=== PATIENT | female | born 1975 | race Caucasian/White ===

== ENCOUNTER → 2016-11-16 | Outpatient (CLI) | payer BC ==
[~2016-11-16] MED LIST: CALC-250 PO; FERR325T74 PO; Hydrocodone Bit/Acetaminophen PO; IBUP-1773 PO; Ibuprofen PO; MULT-974 PO; WEIGHT LOSS PO
--- NOTE | 2016-11-16 19:21 | Diagnostic Imaging Report ---
Bilateral screening mammogram. The current study was also evaluated with a Computer Aided Detection (CAD) system. INDICATION: Screening. No current complaints stated on the questionnaire. COMPARISON: None. FINDINGS: The breasts are composed of heterogeneously dense parenchyma which may decrease mammographic sensitivity. No mass, architectural distortion, or suspicious cluster of calcification seen. IMPRESSION: No mammographic evidence of malignancy. Annual screening mammogram is recommended. ACR BI-RADS Category 2: Benign findings. Result letter will be mailed to the patient. Note: At least 10% of breast cancer is not imaged by mammography. Dictated by: Dictated on workstation # [id number]
== END ==
LOC: RAD 09:35
PROVIDERS: ATTEND Family Medicine
DX: Z12.31 Encounter for screening mammogram for malignant neoplasm of breast (principal)
CPT/HCPCS: 77067

== ENCOUNTER → 2017-03-14 | Outpatient (CLI) | payer BC ==
[~2017-03-14] MED LIST changes: +PRED10TA22 PO
--- NOTE | 2017-03-14 13:21 | Diagnostic Imaging Report ---
EXAMINATION: PA and lateral views of the chest. INDICATION: Cough. FINDINGS: There are left lower lobe infiltrates. The right lung is clear. The heart size is normal. There is a small left pleural effusion. No right effusion and no pneumothorax. The mediastinum and jennifer appear unremarkable. IMPRESSION: Left lower lobe infiltrates and a small left effusion. Dictated by: Dictated on workstation # [id number]
== END ==
LOC: RAD 10:22
PROVIDERS: ATTEND Family Medicine
DX: R91.8 Other nonspecific abnormal finding of lung field (principal); J90 Pleural effusion, not elsewhere classified
CPT/HCPCS: 71020

== ENCOUNTER → 2017-04-05 | Outpatient (CLI) | payer BC ==
--- NOTE | 2017-04-05 10:43 | Diagnostic Imaging Report ---
PA and lateral views of the chest Indication: Chest pain Findings: The lungs are clear. The heart size is normal. There is no effusion or pneumothorax The mediastinum and jennifer appear unremarkable. Impression: Unremarkable study. Dictated by: Dictated on workstation # [id number]
== END ==
LOC: RAD 09:44
PROVIDERS: ATTEND Family Medicine
DX: R07.89 Other chest pain (principal)
CPT/HCPCS: 71020

== ENCOUNTER 2017-04-07 08:33 | Emergency (ER) | payer BC ==
[~2017-04-07] VITALS: Ht 165.1 cm; Wt 72.6 kg
[~2017-04-07 08:33] MED LIST changes: -PRED10TA22 PO
--- OUTSIDE RECORDS SUMMARY | 2017-04-07 08:40 | XMS REPORT | Continuity of Care Document ---
Author Author [facility] Organization [facility] Address Unknown Phone Unavailable Allergies Active Description Code Type Severity Reaction Onset Reported/Identified Relationship to Patient Clinical Status Yes No Known Drug Allergies [id number] Drug Allergy Unknown N/ A 07/18/2007 Medications Problems Date Dx Coded Attending Type Code Diagnosis Diagnosed By 12/31/2013 RIANNA JUAREZ, HANNAH Umaña Ot 512.89 OTHER PNEUMOTHORAX 05/12/2014 RAJAT SCHREIBER DO C Ot 218.0 SUBMUCOUS LEIOMYOMA 05/12/2014 ABDOUL MONK RAJAT C Ot 616.2 BARTHOLIN'S GLAND CYST 05/12/2014 SHEFALI SCHREIBER DOA C Ot 617.1 OVARIAN ENDOMETRIOSIS 05/12/2014 ABDOUL MONK RAJAT C Ot 617.3 PELV PERIT ENDOMETRIOSIS 06/08/2014 ABDOUL MONK RAJAT C Ot 793.5 06/08/2014 ABDOUL MONK RAJAT C Ot V72.63 06/08/2014 ABDOUL MONK RAJAT C Ot V74.8 06/10/2014 ABDOUL MONK RAJAT C Ot 218.2 SUBSEROUS LEIOMYOMA 06/10/2014 ABDOUL MONK RAJAT C Ot 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 06/10/2014 ABDOUL MONK RAJAT C Ot 620.2 OVARIAN CYST NEC/NOS 06/10/2014 ABDOUL MONK RAJAT C Ot 621.2 HYPERTROPHY OF UTERUS 06/16/2014 ABDOUL MONK RAJAT C Ot 218.0 06/16/2014 ABDOUL MONK RAJAT C Ot 617.9 06/16/2014 ABDOUL MONK RAJAT C Ot V72.63 06/16/2014 ABDOUL MONK RAJAT C Ot V74.8 06/02/2015 Ot 724.79 06/02/2015 RICKY JUAREZ, MABEL Snow Ot 786.2 06/02/2015 RICKY JUAREZ, MABEL Snow Ot 786.05 06/02/2015 RIANNA JUAREZ, HANNAH Umaña Ot 512.89 06/02/2015 RICKY JUAREZ, MABEL Snow Ot 620.2 06/02/2015 RICKY JUAREZ, MABEL Snow Ot 626.8 06/02/2015 SCHREIBER DO, RAJAT C Ot 793.5 06/02/2015 SCHREIBER DO, RAJAT C Ot V72.63 06/02/2015 SCHREIBER DO, RAJAT C Ot V74.8 06/02/2015 SCHREIBER DO, RAJAT C Ot 218.0 06/02/2015 SCHREIBER DO, RAJAT C Ot 617.9 06/02/2015 SCHREIBER DO, RAJAT C Ot V72.63 06/02/2015 SCHREIBER DO, RAJAT C Ot V74.8 06/17/2015 ANNAMARIE JUAREZ, ENRRIQUE Casillas Ot R06.02 11/09/2015 Ot 724.79 DISORDER OF COCCYX NEC 11/09/2015 MABEL GARCÍA MD Ot 786.2 COUGH 11/09/2015 MABEL GARCÍA MD Ot 786.05 SHORTNESS OF BREATH 11/09/2015 RIANNA JUAREZ, HANNAH Umaña Ot 512.89 OTHER PNEUMOTHORAX 11/09/2015 RICKY JUAREZ, MABEL Snow Ot 620.2 OVARIAN CYST NEC/NOS 11/09/2015 MABEL GARCÍA MD Ot 626.8 MENSTRUAL DISORDER NEC 11/09/2015 SCHREIBER DO, RAJAT C Ot 793.5 NOSP (ABN) FINDINGS ON RADIOLOGICAL OT 11/09/2015 SCHREIBER DO, RAJAT C Ot V72.63 PRE-PROCEDURAL LABORATORY EXAMINATION 11/09/2015 SCHREIBER DO, RAJAT C Ot V74.8 SCREEN-BACTERIAL DIS NEC 11/09/2015 SCHREIBER DO, RAJAT C Ot 218.0 SUBMUCOUS LEIOMYOMA 11/09/2015 SCHREIBER DO, RAJAT C Ot 617.9 ENDOMETRIOSIS NOS 11/09/2015 SCHREIBER DO, RAJAT C Ot V72.63 PRE-PROCEDURAL LABORATORY EXAMINATION 11/09/2015 SCHREIBER DO, RAJAT C Ot V74.8 SCREEN-BACTERIAL DIS NEC 11/09/2015 ANNAMARIE JUAREZ, ENRRIQUE Casillas Ot R06.02 SHORTNESS OF BREATH 02/29/2016 Ot 724.79 DISORDER OF COCCYX NEC 02/29/2016 MABEL GARCÍA MD Ot 786.2 COUGH 02/29/2016 MABEL GARCÍA MD Ot 786.05 SHORTNESS OF BREATH 02/29/2016 RIANNA JUAREZ, HANNAH Umaña Ot 512.89 OTHER PNEUMOTHORAX 02/29/2016 MABEL GARCÍA MD Ot 620.2 OVARIAN CYST NEC/NOS 02/29/2016 MABEL GARCÍA MD Ot 626.8 MENSTRUAL DISORDER NEC 02/29/2016 SCHREIBER DO, RAJAT C Ot 793.5 NOSP (ABN) FINDINGS ON RADIOLOGICAL OT 02/29/2016 SCHREIBER DO, RAJAT C Ot V72.63 PRE-PROCEDURAL LABORATORY EXAMINATION 02/29/2016 SCHREIBER DO, RAJAT C Ot V74.8 SCREEN-BACTERIAL DIS NEC 02/29/2016 SCHREIBER DO, RAJAT C Ot 218.0 SUBMUCOUS LEIOMYOMA 02/29/2016 SCHREIBER DO, RAJAT C Ot 617.9 ENDOMETRIOSIS NOS 02/29/2016 SCHREIBER DO, RAJAT C Ot V72.63 PRE-PROCEDURAL LABORATORY EXAMINATION 02/29/2016 SCHREIBER DO, RAJAT C Ot V74.8 SCREEN-BACTERIAL DIS NEC 02/29/2016 ANNAMARIE JUAREZ, ENRRIQUE Casillas Ot R06.02 SHORTNESS OF BREATH 06/13/2016 Ot 724.79 DISORDER OF COCCYX NEC 06/13/2016 MABEL GARCÍA MD Ot 786.2 COUGH 06/13/2016 MABEL GARCÍA MD Ot 786.05 SHORTNESS OF BREATH 06/13/2016 RIANNA JUAREZ, HANNAH M Ot 512.89 OTHER PNEUMOTHORAX 06/13/2016 MABEL GARCÍA MD Ot 620.2 OVARIAN CYST NEC/NOS 06/13/2016 MABEL GARCÍA MD Ot 626.8 MENSTRUAL DISORDER NEC 06/13/2016 SCHREIBER DO, RAJAT C Ot 793.5 NOSP (ABN) FINDINGS ON RADIOLOGICAL OT 06/13/2016 SCHREIBER DO, RAJAT C Ot V72.63 PRE-PROCEDURAL LABORATORY EXAMINATION 06/13/2016 SCHREIBER DO, RAJAT C Ot V74.8 SCREEN-BACTERIAL DIS NEC 06/13/2016 SCHREIBER DO, RAJAT C Ot 218.0 SUBMUCOUS LEIOMYOMA 06/13/2016 SCHREIBER DO, RAJAT C Ot 617.9 ENDOMETRIOSIS NOS 06/13/2016 SCHREIBER DO, RAJAT C Ot V72.63 PRE-PROCEDURAL LABORATORY EXAMINATION 06/13/2016 SCHREIBER DO, RAJAT C Ot V74.8 SCREEN-BACTERIAL DIS NEC 06/13/2016 ANNAMARIE JUAREZ, ENRRIQUE Casillas Ot R06.02 SHORTNESS OF BREATH 11/16/2016 MABEL GARCÍA MD Ot 786.2 COUGH 11/16/2016 MABEL GARCÍA MD Ot 786.05 SHORTNESS OF BREATH 11/16/2016 RIANNA JUAREZ, HANNAH M Ot 512.89 OTHER PNEUMOTHORAX 11/16/2016 MABEL GARCÍA MD Ot 620.2 OVARIAN CYST NEC/NOS 11/16/2016 MABEL GARCÍA MD Ot 626.8 MENSTRUAL DISORDER NEC 11/16/2016 SCHREIBER DO, RAJAT C Ot 793.5 NOSP (ABN) FINDINGS ON RADIOLOGICAL OT 11/16/2016 SCHREIBER DO, RAJAT C Ot V72.63 PRE-PROCEDURAL LABORATORY EXAMINATION 11/16/2016 SCHREIBER DO, RAJAT C Ot V74.8 SCREEN-BACTERIAL DIS NEC 11/16/2016 SCHREIBER DO, RAJAT C Ot 218.0 SUBMUCOUS LEIOMYOMA 11/16/2016 SCHREIBER DO, RAJAT C Ot 617.9 ENDOMETRIOSIS NOS 11/16/2016 SCHREIBER DO, RAJAT C Ot V72.63 PRE-PROCEDURAL LABORATORY EXAMINATION 11/16/2016 SCHREIBER DO, RAJAT C Ot V74.8 SCREEN-BACTERIAL DIS NEC 11/16/2016 ANNAMARIE JUAREZ, ENRRIQUE Casillas Ot R06.02 SHORTNESS OF BREATH 11/22/2016 MABEL GARCÍA MD Ot Z12.31 ENCNTR SCREEN MAMMOGRAM FOR MALIGNANT NE 11/29/2016 MABEL GARCÍA MD Ot Z12.31 ENCNTR SCREEN MAMMOGRAM FOR MALIGNANT NE 01/10/2017 MABEL GARCÍA MD Ot 786.2 COUGH 01/10/2017 MABEL GARCÍA MD Ot 786.05 SHORTNESS OF BREATH 01/10/2017 RIANNA JUAREZ, HANNAH M Ot 512.89 OTHER PNEUMOTHORAX 01/10/2017 MABEL GARCÍA MD Ot 620.2 OVARIAN CYST NEC/NOS 01/10/2017 MABEL GARCÍA MD Ot 626.8 MENSTRUAL DISORDER NEC 01/10/2017 SCHREIBER DO, RAJAT C Ot 793.5 NOSP (ABN) FINDINGS ON RADIOLOGICAL OT 01/10/2017 SCHREIBER DO, RAJAT C Ot V72.63 PRE-PROCEDURAL LABORATORY EXAMINATION 01/10/2017 SCHREIBER DO, RAJAT C Ot V74.8 SCREEN-BACTERIAL DIS NEC 01/10/2017 SCHREIBER DO, RAJAT C Ot 218.0 SUBMUCOUS LEIOMYOMA 01/10/2017 SCHREIBER DO, RAJAT C Ot 617.9 ENDOMETRIOSIS NOS 01/10/2017 SCHREIBER DO, RAJAT C Ot V72.63 PRE-PROCEDURAL LABORATORY EXAMINATION 01/10/2017 SCHREIBER DO, RAJAT C Ot V74.8 SCREEN-BACTERIAL DIS NEC 01/10/2017 ANNAMARIE JUAREZ, ENRRIQUE Casillas Ot R06.02 SHORTNESS OF BREATH 01/10/2017 MABEL GARCÍA MD Ot Z12.31 ENCNTR SCREEN MAMMOGRAM FOR MALIGNANT NE 03/14/2017 MABEL GARCÍA MD Ot 786.2 COUGH 03/14/2017 MABEL GARCÍA MD Ot 786.05 SHORTNESS OF BREATH 03/14/2017 RIANNA JUAREZ, HANNAH Umaña Ot 512.89 OTHER PNEUMOTHORAX 03/14/2017 MABEL GARCÍA MD Ot 620.2 OVARIAN CYST NEC/NOS 03/14/2017 MABEL GARCÍA MD Ot 626.8 MENSTRUAL DISORDER NEC 03/14/2017 SCHREIBER DO, RAJAT C Ot 793.5 NOSP (ABN) FINDINGS ON RADIOLOGICAL OT 03/14/2017 SCHREIBER DO, RAJAT C Ot V72.63 PRE-PROCEDURAL LABORATORY EXAMINATION 03/14/2017 SCHREIBER DO, RAJAT C Ot V74.8 SCREEN-BACTERIAL DIS NEC 03/14/2017 SCHREIBER DO, RAJAT C Ot 218.0 SUBMUCOUS LEIOMYOMA 03/14/2017 SCHREIBER DO, RAJAT C Ot 617.9 ENDOMETRIOSIS NOS 03/14/2017 SCHREIBER DO, RAJAT C Ot V72.63 PRE-PROCEDURAL LABORATORY EXAMINATION 03/14/2017 SCHREIBER DO, RAJAT C Ot V74.8 SCREEN-BACTERIAL DIS NEC 03/14/2017 ANNAMARIE JUAREZ, ENRRIQUE Casillas Ot R06.02 SHORTNESS OF BREATH 03/14/2017 MABEL GARCÍA MD Ot Z12.31 ENCNTR SCREEN MAMMOGRAM FOR MALIGNANT NE 03/15/2017 MABEL GARCÍA MD Ot J90 PLEURAL EFFUSION, NOT ELSEWHERE CLASSIFI 03/15/2017 MABEL GARCÍA MD Ot R91.8 OTHER NONSPECIFIC ABNORMAL FINDING OF IESHA 03/28/2017 MABEL GARCÍA MD Ot J90 PLEURAL EFFUSION, NOT ELSEWHERE CLASSIFI 03/28/2017 MABEL GARCÍA MD Ot R91.8 OTHER NONSPECIFIC ABNORMAL FINDING OF IESHA Procedures Results Encounters ACCT No. Visit Date/Time Discharge Status Pt. Type Provider Facility Loc./Unit Complaint [id number] 03/14/2017 10:22:00 2016 23:59:59 CLS Outpatient MABEL GARCÍA MD [facility] RAD COUGH [id number] 11/16/2016 09:35:00 2016 23:59:59 CLS Outpatient MABEL GARCÍA MD [facility] RAD SCREENING [id number] 06/02/2015 08:34:00 2014 23:59:59 CLS Outpatient ENRRIQUE DE LUNA MD [facility] RT SHORTNESS OF BREATH [id number] 06/09/2014 06:07:00 2013 11:30:00 DIS Outpatient RAJAT SCHREIBER DO [facility] UTERINE FIBROIDS;ENDOMETRIOSIS; SUBMUCOSA FIBROIDS [id number] 05/25/2014 09:22:00 2013 23:59:59 CLS Outpatient RAJAT SCHREIBER DO [facility] PREOP UTERINE FIBROIDS;ENDOMETRIOSIS; SUBMUCOSA FIBROIDS [id number] 05/12/2014 08:20:00 2013 16:20:00 DIS Outpatient RAJAT SCHREIBER DO [facility] THICKENED ENDOMETIUM; HYPERVASCULAR LESION [id number] 05/11/2014 08:32:00 2013 23:59:59 CLS Outpatient RAJAT SCHREIBER DO [facility] PREOP THICKENED ENDOMETRIUM; HYPERVASCULAR LESION [id number] 04/02/2014 09:45:00 2013 23:59:59 CLS Outpatient MABEL GARCÍA MD [facility] RAD DUB [id number] 01/08/2014 09:16:00 2013 23:59:59 CLS Outpatient BLANCAHANNAH CHUNG MD [facility] RAD RT PNUEMOTHORAX [id number] 12/29/2013 22:10:00 2013 14:46:00 DIS Inpatient HANNAH BLANCA MD [facility] SURGICAL SPONTANEOUS PNEUMOTHORAX [id number] 07/09/2013 11:46:00 2013 23:59:59 CLS Outpatient MABEL GARCÍA MD [facility] RT COUGH [id number] 06/27/2013 13:53:00 2012 23:59:59 CLS Outpatient MABEL GARCÍA MD [facility] RAD COUGH [id number] 05/11/2011 09:05:00 Document Registration
--- NOTE | 2017-04-07 09:18 | Diagnostic Imaging Report ---
EXAMINATION: CHEST (PA AND LATERAL) CLINICAL INDICATION: 41-year-old female, left-sided chest pain. COMPARISON: April 05, 2017. FINDINGS: Stable overall appearance of the cardiomediastinal silhouette. There is no identified pneumothorax. There is no pleural effusion. There is no identified focal airspace consolidation. There is no identified significantly displaced rib fracture. IMPRESSION: No identified acute cardiopulmonary abnormality. Dictated by: Dictated on workstation # [id number]
--- NOTE | 2017-04-07 09:37 | ED Chest Pain ---
General Chief Complaint: Chest Wall/Rib Pain Stated Complaint: CP Nursing Triage Note: PT REPORTS CHEST WALL PAIN SINCE SUNDAY THAT IS WORSE WITH INSPIRATION. SHE REPORTS SHE WAS RECENTLY TX FOR PNEUMONIA. SHE ALSO STATES SHE SAW HER PCP ON SUNDAY AND HAD CXR DONE. SHE REPORTS NO IMPROVEMENT OF CHEST WALL PAIN. Nursing Sepsis Screen: No Definite Risk Source: patient, old records Exam Limitations: no limitations Allergies and Home Medications Allergies Coded Allergies: No Known Drug Allergies (Verified , 07/18/07) Home Medications Calcium Carbonate/Vitamin D3 1 Each Tablet, 1 EACH PO DAILY, (Reported) Ferrous Sulfate 325 Mg Tablet, 325 MG PO BID, (Reported) Multivitamin 1 Each Tablet, 1 EACH PO DAILY, (Reported) Prednisone 10 Mg Tab.ds.pk, 10 MG PO UD, #18 3 daily for 3 days, then 2 daily for 3 days, then one daily for 3 days Prescribed by: ROGE PAPPAS on 04/07/17 0944 [Hydrocodone Bit/Acetaminophen] 1 TAB TAB, 1-2 TAB PO Q4H PRN for Pain, #45 Prescribed by: RAJAT SCHREIBER on 06/10/14 0907 [Ibuprofen] 600 MG TAB, 600 MG PO Q6H PRN for PAIN, #40 Prescribed by: RAJAT SCHREIBER on 06/10/14 0907 Past Mwzbkxn-Ktidxy-Mepkrk Hx Patient Social History Alcohol Use: Denies Use Recreational Drug Use: No Smoking Status: Never a Smoker 2nd Hand Smoke Exposure: No Recent Foreign Travel: No Contact w/Someone Who Travel: No Recent Infectious Disease Expo: No Recent Hopitalizations: No Physical Abuse: No Sexual Abuse: No Seasonal Allergies Seasonal Allergies: No Surgeries History of Surgeries: Yes (D&C, DIAGNOSTIC LAPAROSCOPY, PLEURADESIS) Respiratory History of Respiratory Disorde: Yes (November,-SPONTANEOUS PNEUMOTHORAX) Cardiovascular History of Cardiac Disorders: No Neurological History of Neurological Disord: No Reproductive System Hx Reproductive Disorders: Yes Sexually Transmitted Disease: No Gastrointestinal History of Gastrointestinal Di: No Musculoskeletal History of Musculoskeletal Dis: Yes (TEAR SHOULDER AND ARTHRITIS IN HAND) Endocrine History of Endocrine Disorders: No Cancer History of Cancer: No Psychosocial History of Psychiatric Problem: No Suicide Risk Score: 0 Integumentary History of Skin or Integumenta: No Blood Transfusions History of Blood Disorders: Yes Physical Exam Vital Signs Vital Sign - Last 12Hours 04/07/17 08:46 Temp 98.1 Pulse 76 Resp 20 B/P (MAP) 108/71 Pulse Ox 100 O2 Delivery Room Air Capillary Refill : Less Than 3 Seconds Progress/Results/Core Measures Results/Orders My Orders Orders - ROGE LOUIE MD Chest Pa/Lat (2 View) (04/07/17 08:55) Vital Signs/I&O Vital Sign - Last 12Hours 04/07/17 08:46 Temp 98.1 Pulse 76 Resp 20 B/P (MAP) 108/71 Pulse Ox 100 O2 Delivery Room Air Blood Pressure Mean: 83 Diagnostic Imaging Diagonstic Imaging: Xray Plain Films/CT/US/NM/MRI: chest Comments Two-view chest x-ray viewed by me and report reviewed. See report below: NAME: RAJAT GARZA [facility] REC#: [id number] PT STATUS: REG ER : 1975 PHYSICIAN: ROGE LOUIE MD ADMIT DATE: 04/07/17/ER Draft Date of Exam:04/07/17 CHEST PA/LAT (2 VIEW) EXAMINATION: CHEST (PA AND LATERAL) CLINICAL INDICATION: 41-year-old female, left-sided chest pain. COMPARISON: April 05, 2017. FINDINGS: Stable overall appearance of the cardiomediastinal silhouette. There is no identified pneumothorax. There is no pleural effusion. There is no identified focal airspace consolidation. There is no identified significantly displaced rib fracture. IMPRESSION: No identified acute cardiopulmonary abnormality. Dictated on workstation # [id number] Dict: 04/07/17911 Trans: 04/07/17 0917 [facility] [id number] Interpreted by: KING CARBALLO MD Departure Impression Impression: Primary Impression: Chest wall pain Additional Impression: Cough Disposition: 01 HOME, SELF-CARE Condition: Improved Departure-Patient Inst. Decision time for Depature: 09:39 Referrals: MABEL GARCÍA MD (PCP/Family) Primary Care Physician Patient Instructions: Chest Pain That Is Not Caused by the Heart (DC) Add. Discharge Instructions: You may continue using your inhaler for shortness of breath, wheezing, or uncontrolled cough. Use your steroid (prednisone) taper as prescribed. Take with food or milk to avoid stomach irritation and take early in the day to avoid sleep disturbance. You may continue taking ibuprofen up to 600 mg every 6 hours as needed for pain. Add Tylenol (acetaminophen) up to 1000 mg every 6 hours as needed for additional pain relief. If symptoms worsen, return to the emergency room, especially if you develop fever greater than 100. If you are not significantly improving by 48 hours after starting this treatment , please contact your doctor. Exercise deep breathing frequently throughout the day, preferably 10 times per hour while awake if you can until pain resolves. This will help prevent recurrence of pneumonia. All discharge instructions reviewed with patient and/or family. Voiced understanding. Scripts Prednisone (Prednisone) 10 Mg Tab.ds.pk 10 MG PO UD, #18 PKG 3 daily for 3 days, then 2 daily for 3 days, then one daily for 3 days Prov: ROGE LOUIE MD 04/07/17 ROGE LOUIE MD Apr 07, 2017 09:37
[2017-04-07] MEDS ORDERED: PRED10TA22 PO (09:44)
[2017-04-07 09:50] VITALS: BP 108/71
== END 2017-04-07 09:50 | disposition home or self-care (01) ==
LOC: EDUNIT# 08:33 → ER 08:35
DX: R07.89 Other chest pain (principal); R05 Cough
CPT/HCPCS: 71020; 99283

== ENCOUNTER → 2017-04-25 | Outpatient (CLI) | payer BC ==
[~2017-04-25] MED LIST changes: +PRED10TA22 PO; +RT-ALBUTEROL SULF 2.5 MG/3 ML PRE-MIX VIAL IH ONE; +RT-ALBUTEROL SULF 2.5 MG/3 ML PRE-MIX VIAL ONE
== END ==
LOC: RT 15:36
PROVIDERS: ATTEND Allergy & Immunology
DX: R06.02 Shortness of breath (principal)
CPT/HCPCS: 94060; 94640; 94726; 94729

== ENCOUNTER → 2018-07-09 | Outpatient (CLI) | payer BC ==
[~2018-07-09] MED LIST changes: -RT-ALBUTEROL SULF 2.5 MG/3 ML PRE-MIX VIAL IH ONE; -RT-ALBUTEROL SULF 2.5 MG/3 ML PRE-MIX VIAL ONE
--- NOTE | 2018-07-09 13:10 | Diagnostic Imaging Report ---
INDICATION: Routine screening. Comparison is made with prior mammogram from 11/16/2016. 2-D and 3-D bilateral screening mammography was performed with computer-aided Detection (CAD) system. FINDINGS: Both breasts remain heterogeneously dense, limiting the sensitivity of mammography. No dominant mass or malignant-appearing microcalcifications are seen. The axillae are unremarkable. IMPRESSION: No mammographic features suspicious for malignancy are identified. ACR BI-RADS Category 1: Negative. Result letter will be mailed to the patient. Note: At least 10% of breast cancer is not imaged by mammography. Dictated by: Dictated on workstation # [id number]
== END ==
LOC: RAD 09:31
PROVIDERS: ATTEND Obstetrics & Gynecology
DX: Z12.31 Encounter for screening mammogram for malignant neoplasm of breast (principal)
CPT/HCPCS: 77067

== ENCOUNTER → 2018-12-09 | Outpatient (CLI) | payer BC ==
[~2018-12-09] VITALS: Ht 165.1 cm; Wt 73.9 kg
[~2018-12-09] MED LIST changes: +GADOBUTROL 7.5 MMOL/7.5 ML (GADAVIST) VIAL IV ONE; +IOHEXOL 240 MGI/ML 20 ML (OMNIPAQUE) VIAL IV ONE; +LIDOCAINE 1% INJ 20 ML 20 ML VIAL INJ ONE; +LIDOCAINE 1% INJ 20 ML 20 ML VIAL ONE
--- NOTE | 2018-12-09 10:50 | Diagnostic Imaging Report ---
EXAMINATION: Magnetic resonance imaging of the right shoulder with intra-articular contrast. DATE: December 09, 2018. COMPARISON: Right shoulder arthrogram December 09, 2018. HISTORY: 43-year-old female, right shoulder pain and decreased range of motion. TECHNIQUE: Magnetic Resonance Imaging sequences were performed of the shoulder following the intra-articular administration of contrast. FINDINGS: ROTATOR CUFF, LIGAMENTS, TENDONS, AND MUSCLES: The supraspinatus, infraspinatus, teres minor, and subscapularis tendons and muscles are intact. There is normal rotator cuff muscle bulk and signal. LONG HEAD OF BICEPS: The biceps labral attachment and long head of the biceps tendon is intact. The long head of the biceps tendon is normally positioned within the bicipital groove. GLENOHUMERAL JOINT: The humeral head is well positioned relative to the glenoid. The labrum is intact. There is no identified paralabral cyst. The articular cartilage is grossly intact. There is no intra-articular body or prominent synovitis. ACROMIOCLAVICULAR JOINT: The acromioclavicular joint is normally aligned. The coracoclavicular and coracoacromial ligaments are intact. There are no degenerative changes of the acromioclavicular joint. BONE: The bones all have normal configuration. There is a low signal lesion in the distal clavicle most likely reflecting a benign bone island. There is no acute fracture, bone contusion, or evidence of osteonecrosis. BURSAE AND SOFT TISSUES: The bursae and soft tissue surrounding the shoulder are unremarkable. IMPRESSION: 1. Intact labrum and unremarkable additional glenohumeral joint assessment. 2. Intact rotator cuff. 3. Intact acromioclavicular joint. 4. No acute fracture, bone contusion, or evidence of osteonecrosis. 5. Low signal lesion of the distal clavicle most likely reflecting a benign bone island. Dictated by: Dictated on workstation # [id number]
--- NOTE | 2018-12-09 11:36 | Diagnostic Imaging Report ---
Right shoulder arthrogram for MRI. Indication: Arm pain Following the typical preparation of the skin and administration of local anesthesia, a 21-gauge needle was advanced into the glenohumeral joint using fluoroscopic guidance. A 15 cc mixture of 10 cc of Omnipaque 240, 10 cc of saline and 0.2 cc of Gadavist this was infused. The patient tolerated the procedure well and was dismissed in good condition. 24 seconds of fluoroscopy time was utilized. Impression: There has been a successful injection of the glenohumeral joint on the right. MRI is pending for further study. Dictated by: Dictated on workstation # [id number]
== END ==
LOC: RAD 08:34
PROVIDERS: ATTEND Orthopaedic Surgery
DX: M89.9 Disorder of bone, unspecified (principal); M25.511 Pain in right shoulder
CPT/HCPCS: 23350; 73040; 73219

== ENCOUNTER → 2019-08-19 | Outpatient (CLI) | payer BC ==
[~2019-08-19] MED LIST changes: -GADOBUTROL 7.5 MMOL/7.5 ML (GADAVIST) VIAL IV ONE; -IOHEXOL 240 MGI/ML 20 ML (OMNIPAQUE) VIAL IV ONE; -LIDOCAINE 1% INJ 20 ML 20 ML VIAL INJ ONE; -LIDOCAINE 1% INJ 20 ML 20 ML VIAL ONE
[2019-08-19 10:56] LABS: BASOPHILS % (AUTO) 0 % (0-10); EOSINOPHILS # (AUTO) 0.1 10^3/uL (0.0-0.3); EOSINOPHILS % (AUTO) 2 % (0-10); HEMATOCRIT 38 % (35-52); HEMOGLOBIN 12.9 G/DL (11.5-16.0); LYMPHOCYTES # (AUTO) 1.6 X 10^3 (1.0-4.0); LYMPHOCYTES % (AUTO) 43 % (12-44); MEAN CORPUSCULAR HEMOGLOBIN 30 PG (25-34); MEAN CORPUSCULAR HGB CONC 34 G/DL (32-36); MEAN CORPUSCULAR VOLUME 87 FL (80-99); MEAN PLATELET VOLUME 9.3 FL (7.4-10.4); MONOCYTES # (AUTO) 0.4 X 10^3 (0.0-1.0); MONOCYTES % (AUTO) 11 % (0-12); NEUTROPHILS # (AUTO) 1.7 X 10^3 (1.8-7.8); NEUTROPHILS % (AUTO) 45 % (42-75); PLATELET COUNT 171 10^3/uL (130-400); RED CELL DISTRIBUTION WIDTH 12.1 % (10.0-14.5); WHITE BLOOD COUNT 3.8 10^3/uL (4.3-11.0)
--- NOTE | 2019-08-19 11:30 | Diagnostic Imaging Report ---
INDICATION: Cough and shortness of breath. PA and lateral views were obtained. COMPARISON: Comparison made with prior examination from 04/07/2017. FINDINGS: The heart size, mediastinal configuration, and pulmonary vascularity are within normal limits. There is no pleural effusion, pneumothorax, or pneumonia. The osseous structures are unremarkable. IMPRESSION: No acute cardiopulmonary abnormality. Dictated by: Dictated on workstation # [id number]
== END ==
LOC: RAD 10:34
PROVIDERS: ATTEND Family Medicine
DX: R06.02 Shortness of breath (principal); R05 Cough
CPT/HCPCS: 36415; 71046; 85025

== ENCOUNTER 2020-01-07 08:29 | Emergency (ER) | payer BC ==
[~2020-01-07] VITALS: Ht 165 cm; Wt 73.6 kg
[2020-01-07] MEDS ORDERED: ASPIRIN 81 MG CHEW (CHILDREN'S ASA) PO ONE (08:45)
--- NOTE | 2020-01-07 08:54 | Diagnostic Imaging Report ---
INDICATION: Shortness fair, chest pain, fever.. TECHNIQUE: Single view chest 8:50 AM. CORRELATION STUDY: 08/19/2019 FINDINGS: The heart size, mediastinal configuration and pulmonary vascularity are within normal limits. The lungs are clear with no consolidating infiltrate. There is no significant effusion or pneumothorax. Mild rightward curvature thoracic spine. IMPRESSION: 1. Generally stable, negative appearing portable chest. Dictated by: Dictated on workstation # [id number]
--- OUTSIDE RECORDS SUMMARY | 2020-01-07 08:54 | XMS REPORT | Clinical Summary ---
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 If you d o not see the information that you expected, contact Release of Information in [facility] [employer] Information Management department at [phone] for further assistan ce in locating additional records.[facility] Allergies Not on File Medications Not on file Active Problems Not on file Family History Medical History Relation Name Comments COPD Father COPD Mother Relation Name Status Comments Father Mother Social History Date Tobacco Use Types Packs/Day Years Used Never Smoker Smokeless Tobacco: Never Used Drinks/Week oz/Week Comments Alcohol Use Yes Alcohol Habits Answer Date Recorded How often do you have a drink containing alcohol? Monthly or less 07/10/2019 How many drinks containing alcohol do you have on No t asked a typical day when you are drinking? How often do you have six or more drinks on one Not asked occasion? Sex Assigned at Date Recorded Not on file Industry Job Start Date Occupation Not on file Not on file Not on file Travel End Travel History Travel Start No recent travel history available. Last Filed Vital Signs Reading Time Taken Comments Vital Sign 98/54 07/10/2019 11:18 AM PRE PRESS OPERATOR Blood Pressure 76 07/10/2019 11:18 AM PRE PRESS OPERATOR Pulse 36.8 C (98.3 F) 07/10/2019 11:18 AM PRE PRESS OPERATOR Temperature 14 07/10/2019 11:18 AM PRE PRESS OPERATOR Respiratory Rate 100% 07/10/2019 11:18 AM PRE PRESS OPERATOR Oxygen Saturation - - Inhaled Oxygen Concentration - - Weight - - Height - - Body Mass Index Plan of Treatment Health Maintenance Due Date Last Done Comments HIV SCREENING 1991 DTAP/TDAP VACCINES (1 - 1994 Tdap) HEPATITIS C SCREENING 1994 PHYSICAL (COMPREHENSIVE) 1994 EXAM CERVICAL CANCER SCREENING 1997 BREAST CANCER SCREENING 2016 INFLUENZA VACCINE 04/01/2020 Results Not on filefrom Last 3 Months Insurance Type Payer Benefit Subscriber ID Effective Phone Address Plan / Dates Group PPO BCBS [facility] xxxxxxxxxxxx [id number] [facility] resent [id number] Advance Directives 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
--- OUTSIDE RECORDS SUMMARY | 2020-01-07 08:55 | XMS REPORT | Continuity of Care Document ---
Author Organization Unknown Address Unknown Phone Unavailable Allergies Active Description Code Type Severity Reaction Onset Reported/Identified Relationship to Patient Clinical Status Yes No Known Drug Allergies [id number] Drug Allergy Unknown N/A 07/18/2007 Medications There is no data. 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 2 06/02/2015 RICKY JUAREZ, MABEL Snow Ot 786. 05 06/02/2015 RIANNA JUAREZ, HANNAH Umaña Ot 512.89 06/02/2015 RICKY JUAREZ, MABEL Snow Ot 620. 2 06/02/2015 MABEL GARCÍA MD Ot 626. 8 06/02/2015 SCHREIBER DO, RAJAT C Ot 793.5 06/02/2015 SCHREIBER DO, RAJAT C Ot V72.6 3 06/02/2015 SCHREIBER DO, RAJAT C Ot V74.8 06/02/2015 SCHREIBER DO, RAJAT C Ot 218.0 06/02/2015 SCHREIBER DO, RAJAT C Ot 617.9 06/02/2015 SCHREIBER DO, RAJAT C Ot V72.6 3 06/02/2015 SCHREIBER DO, RAJAT C Ot V74.8 06/17/2015 ANNAMARIE JUAREZ, ENRRIQUE Casillas Ot R06.02 11/09/2015 Ot 724.79 DIS ORDER OF COCCYX NEC 11/09/2015 MABEL GARCÍA MD Ot 786. 2 COUGH 11/09/2015 MABEL GARCÍA MD Ot 786. 05 SHORTNESS OF BREATH 11/09/2015 RIANNA JUAREZ, HANNAH Umaña Ot 512.89 OTHER PNEUMOTHORAX 11/09/2015 MABEL GARCÍA MD Ot 620. 2 OVARIAN CYST NEC/NOS 11/09/2015 MABEL GARCÍA MD Ot 626. 8 MENSTRUAL DISORDER NEC 11/09/2015 SCHREIBER DO, RAJAT C Ot 793.5 NOSP (ABN) FINDINGS ON RADIOLOGICAL OT 11/09/2015 SCHREIBER DO, RAJAT C Ot V72.6 3 PRE-PROCEDURAL LABORATORY EXAMINATION 11/09/2015 SCHREIBER DO, RAJAT C Ot V74.8 SCREEN-BACTERIAL DIS NEC 11/09/2015 SCHREIBER DO, RAAJT C Ot 218.0 SUBMUCOUS LEIOMYOMA 11/09/2015 SCHREIBER DO, RAJAT C Ot 617.9 ENDOMETRIOSIS NOS 11/09/2015 SCHREIBER DO, RAJAT C Ot V72.6 3 PRE-PROCEDURAL LABORATORY EXAMINATION 11/09/2015 SCHREIBER DO, RAJAT C Ot V74.8 SCREEN-BACTERIAL DIS NEC 11/09/2015 ANNAMARIE JUAREZ, ENRRIQUE Casillas Ot R06.02 SHORTNESS OF BREATH 02/29/2016 Ot 724.79 DIS ORDER OF COCCYX NEC 02/29/2016 MABEL GARCÍA MD Ot 786. 2 COUGH 02/29/2016 MABEL GARCÍA MD Ot 786. 05 SHORTNESS OF BREATH 02/29/2016 RIANNA JUAREZ, HANNAH M Ot 512.89 OTHER PNEUMOTHORAX 02/29/2016 MABEL GARCÍA MD Ot 620. 2 OVARIAN CYST NEC/NOS 02/29/2016 MABEL GARCÍA MD Ot 626. 8 MENSTRUAL DISORDER NEC 02/29/2016 SCHREIBER DO, RAJAT C Ot 793.5 NOSP (ABN) FINDINGS ON RADIOLOGICAL OT 02/29/2016 SCHREIBER DO, RAJAT C Ot V72.6 3 PRE-PROCEDURAL LABORATORY EXAMINATION 02/29/2016 SCHREIBER DO, RAJAT C Ot V74.8 SCREEN-BACTERIAL DIS NEC 02/29/2016 SCHREIBER DO, RAJAT C Ot 218.0 SUBMUCOUS LEIOMYOMA 02/29/2016 SCHREIBER DO, RAJAT C Ot 617.9 ENDOMETRIOSIS NOS 02/29/2016 SCHREIBER DO, RAJAT C Ot V72.6 3 PRE-PROCEDURAL LABORATORY EXAMINATION 02/29/2016 SCHREIBER DO, RAJAT C Ot V74.8 SCREEN-BACTERIAL DIS NEC 02/29/2016 ANNAMARIE JUAREZ, ENRRIQUE Casillas Ot R06.02 SHORTNESS OF BREATH 06/13/2016 Ot 724.79 DIS ORDER OF COCCYX NEC 06/13/2016 MABEL GARCÍA MD Ot 786. 2 COUGH 06/13/2016 MABEL GARCÍA MD Ot 786. 05 SHORTNESS OF BREATH 06/13/2016 RIANNA JUAREZ, HANNAH M Ot 512.89 OTHER PNEUMOTHORAX 06/13/2016 MABEL GARCÍA MD Ot 620. 2 OVARIAN CYST NEC/NOS 06/13/2016 MABEL GARCÍA MD Ot 626. 8 MENSTRUAL DISORDER NEC 06/13/2016 SCHREIBER DO, RAJAT C Ot 793.5 NOSP (ABN) FINDINGS ON RADIOLOGICAL OT 06/13/2016 SCHREIBER DO, RAJAT C Ot V72.6 3 PRE-PROCEDURAL LABORATORY EXAMINATION 06/13/2016 SCHREIBER DO, RAJAT C Ot V74.8 SCREEN-BACTERIAL DIS NEC 06/13/2016 SCHREIBER DO, RAJAT C Ot 218.0 SUBMUCOUS LEIOMYOMA 06/13/2016 SCHREIBER DO, RAJAT C Ot 617.9 ENDOMETRIOSIS NOS 06/13/2016 SCHREIBER DO, RAJAT C Ot V72.6 3 PRE-PROCEDURAL LABORATORY EXAMINATION 06/13/2016 SCHREIBER DO, RAJAT C Ot V74.8 SCREEN-BACTERIAL DIS NEC 06/13/2016 ANNAMARIE JUAREZ, ENRRIQUE Casillas Ot R06.02 SHORTNESS OF BREATH 11/16/2016 MABEL GARCÍA MD Ot 786. 2 COUGH 11/16/2016 MABEL GARCÍA MD Ot 786. 05 SHORTNESS OF BREATH 11/16/2016 RIANNA JUAREZ, HANNAH M Ot 512.89 OTHER PNEUMOTHORAX 11/16/2016 MABEL GARCÍA MD Ot 620. 2 OVARIAN CYST NEC/NOS 11/16/2016 MABEL GARCÍA MD Ot 626. 8 MENSTRUAL DISORDER NEC 11/16/2016 SCHREIBER DO, RAJAT C Ot 793.5 NOSP (ABN) FINDINGS ON RADIOLOGICAL OT 11/16/2016 SCHREIBER DO, RAJAT C Ot V72.6 3 PRE-PROCEDURAL LABORATORY EXAMINATION 11/16/2016 SCHREIBER DO, RAJAT C Ot V74.8 SCREEN-BACTERIAL DIS NEC 11/16/2016 SCHREIBER DO, RAJAT C Ot 218.0 SUBMUCOUS LEIOMYOMA 11/16/2016 SCHREIBER DO, RAJAT C Ot 617.9 ENDOMETRIOSIS NOS 11/16/2016 SCHREIBER DO, RAJAT C Ot V72.6 3 PRE-PROCEDURAL LABORATORY EXAMINATION 11/16/2016 SCHREIBER DO, RAJAT C Ot V74.8 SCREEN-BACTERIAL DIS NEC 11/16/2016 ANNAMARIE JUAREZ, ENRRIQUE Casillas Ot R06.02 SHORTNESS OF BREATH 11/22/2016 MABEL GARCÍA MD Ot Z12. 31 ENCNTR SCREEN MAMMOGRAM FOR MALIGNANT NE 11/29/2016 MABEL GARCÍA MD Ot Z12. 31 ENCNTR SCREEN MAMMOGRAM FOR MALIGNANT NE 01/10/2017 MABEL GARCÍA MD Ot 786. 2 COUGH 01/10/2017 MABEL GARCÍA MD Ot 786. 05 SHORTNESS OF BREATH 01/10/2017 RIANNA JUAREZ, HANNAH M Ot 512.89 OTHER PNEUMOTHORAX 01/10/2017 MABEL GARCÍA MD Ot 620. 2 OVARIAN CYST NEC/NOS 01/10/2017 MABEL GARCÍA MD Ot 626. 8 MENSTRUAL DISORDER NEC 01/10/2017 SCHREIBER DO, RAJAT C Ot 793.5 NOSP (ABN) FINDINGS ON RADIOLOGICAL OT 01/10/2017 SCHREIBER DO, RAJAT C Ot V72.6 3 PRE-PROCEDURAL LABORATORY EXAMINATION 01/10/2017 SCHREIBER DO, RAJAT C Ot V74.8 SCREEN-BACTERIAL DIS NEC 01/10/2017 SCHREIBER DO, RAJAT C Ot 218.0 SUBMUCOUS LEIOMYOMA 01/10/2017 SCHREIBER DO, RAJAT C Ot 617.9 ENDOMETRIOSIS NOS 01/10/2017 SCHREIBER DO, RAJAT C Ot V72.6 3 PRE-PROCEDURAL LABORATORY EXAMINATION 01/10/2017 SCHREIBER DO, RAJAT C Ot V74.8 SCREEN-BACTERIAL DIS NEC 01/10/2017 ANNAMARIE JUAREZ, ENRRIQUE Casillas Ot R06.02 SHORTNESS OF BREATH 01/10/2017 MABEL GARCÍA MD Ot Z12. 31 ENCNTR SCREEN MAMMOGRAM FOR MALIGNANT NE 03/14/2017 MABEL GARCÍA MD Ot 786. 2 COUGH 03/14/2017 RICKY JUAREZ, MABEL Snow Ot 786. 05 SHORTNESS OF BREATH 03/14/2017 RIANNA JUAREZ, HANNAH M Ot 512.89 OTHER PNEUMOTHORAX 03/14/2017 RICKY JUAREZ, MABEL Snow Ot 620. 2 OVARIAN CYST NEC/NOS 03/14/2017 RICKY JUAREZ, MABEL Snow Ot 626. 8 MENSTRUAL DISORDER NEC 03/14/2017 SCHREIBER DO, RAJAT C Ot 793.5 NOSP (ABN) FINDINGS ON RADIOLOGICAL OT 03/14/2017 SCHREIBER DO, RAJAT C Ot V72.6 3 PRE-PROCEDURAL LABORATORY EXAMINATION 03/14/2017 SCHREIBER DO, RAJAT C Ot V74.8 SCREEN-BACTERIAL DIS NEC 03/14/2017 SCHREIBER DO, RAJAT C Ot 218.0 SUBMUCOUS LEIOMYOMA 03/14/2017 SCHREIBER DO, RAJAT C Ot 617.9 ENDOMETRIOSIS NOS 03/14/2017 SCHREIBER DO, RAJAT C Ot V72.6 3 PRE-PROCEDURAL LABORATORY EXAMINATION 03/14/2017 SCHREIBER DO, RAJAT C Ot V74.8 SCREEN-BACTERIAL DIS NEC 03/14/2017 ANNAMARIE JUAREZ, ENRRIQUE Casillas Ot R06.02 SHORTNESS OF BREATH 03/14/2017 MABEL GARCÍA MD Ot Z12. 31 ENCNTR SCREEN MAMMOGRAM FOR MALIGNANT NE 03/15/2017 MABEL GARCÍA MD, Ot J90 PLEURAL EFFUSION, NOT ELSEWHERE CLASSIFI 03/15/2017 MABEL GARCÍA MD Ot R91. 8 OTHER NONSPECIFIC ABNORMAL FINDING OF IESHA 03/28/2017 MABEL GARCÍA MD, Ot J90 PLEURAL EFFUSION, NOT ELSEWHERE CLASSIFI 03/28/2017 MABEL GARCÍA MD Ot R91. 8 OTHER NONSPECIFIC ABNORMAL FINDING OF IESHA 04/07/2017 JACY JUAREZ, ROGE Banegas Ot R05 COUGH 04/07/2017 JACY JUAREZ, ROGE Banegas Ot R07.89 OTHER CHEST PAIN 04/18/2017 MABEL GARCÍA MD Ot R07. 89 OTHER CHEST PAIN 05/03/2017 ANNAMARIE JUAREZ, ENRRIQUE Casillas Ot R06.02 SHORTNESS OF BREATH 07/01/2018 MABEL GARCÍA MD Ot 786. 2 COUGH 07/01/2018 MABEL GARCÍA MD Ot 786. 05 SHORTNESS OF BREATH 07/01/2018 RIANNA JUAREZ, HANNAH Umaña Ot 512.89 OTHER PNEUMOTHORAX 07/01/2018 MABEL GARCÍA MD Ot 620. 2 OVARIAN CYST NEC/NOS 07/01/2018 MABEL GARCÍA MD Ot 626. 8 MENSTRUAL DISORDER NEC 07/01/2018 SCHREIBER DO, RAJAT C Ot 793.5 NOSP (ABN) FINDINGS ON RADIOLOGICAL OT 07/01/2018 SCHREIBER DO, RAJAT C Ot V72.6 3 PRE-PROCEDURAL LABORATORY EXAMINATION 07/01/2018 SCHREIBER DO, RAJAT C Ot V74.8 SCREEN-BACTERIAL DIS NEC 07/01/2018 SCHREIBER DO, RAJAT C Ot 218.0 SUBMUCOUS LEIOMYOMA 07/01/2018 SCHREIBER DO, RAJAT C Ot 617.9 ENDOMETRIOSIS NOS 07/01/2018 SCHREIBER DO, RAJAT C Ot V72.6 3 PRE-PROCEDURAL LABORATORY EXAMINATION 07/01/2018 SCHREIBER DO, RAJAT C Ot V74.8 SCREEN-BACTERIAL DIS NEC 07/01/2018 ANNAMARIE JUAREZ, ENRRIQUE Casillas Ot R06.02 SHORTNESS OF BREATH 07/01/2018 MABEL GARCÍA MD Ot Z12. 31 ENCNTR SCREEN MAMMOGRAM FOR MALIGNANT NE 07/01/2018 MABEL GARCÍA MD, Ot J90 PLEURAL EFFUSION, NOT ELSEWHERE CLASSIFI 07/01/2018 MABEL GARCÍA MD Ot R91. 8 OTHER NONSPECIFIC ABNORMAL FINDING OF IESHA 07/01/2018 MABEL GARCÍA MD Ot R07. 89 OTHER CHEST PAIN 07/01/2018 ANNAMARIE JUAREZ, ENRRIQUE Casillas Ot R06.02 SHORTNESS OF BREATH 07/10/2018 ABDOUL MONK RAJAT C Ot Z12.3 1 ENCNTR SCREEN MAMMOGRAM FOR MALIGNANT NE 07/24/2018 ABDOUL MONK RAJAT C Ot Z12.3 1 ENCNTR SCREEN MAMMOGRAM FOR MALIGNANT NE 12/17/2018 ENRRIQUE CAIN MD Ot M25.511 PAIN IN RIGHT SHOULDER 12/17/2018 ENRRIQUE CAIN MD Ot M89.9 DISORDER OF BONE, UNSPECIFIED 12/27/2018 ENRRIQUE CAIN MD Ot M25.511 PAIN IN RIGHT SHOULDER 12/27/2018 ENRRIQUE CAIN MD Ot M89.9 DISORDER OF BONE, UNSPECIFIED 06/24/2019 HANNAH BLANCA MD Ot 512.89 OTHER PNEUMOTHORAX 06/24/2019 MABEL GARCÍA MD Ot 620. 2 OVARIAN CYST NEC/NOS 06/24/2019 MABEL GACRÍA MD Ot 626. 8 MENSTRUAL DISORDER NEC 06/24/2019 SCHREIBER DO, RAJAT C Ot 793.5 NOSP (ABN) FINDINGS ON RADIOLOGICAL OT 06/24/2019 SCHREIBER DO, RAJAT C Ot V72.6 3 PRE-PROCEDURAL LABORATORY EXAMINATION 06/24/2019 SCHREIBER DO, RAJAT C Ot V74.8 SCREEN-BACTERIAL DIS NEC 06/24/2019 SCHREIBER DO, RAJAT C Ot 218.0 SUBMUCOUS LEIOMYOMA 06/24/2019 SCHREIBER DO, RAJAT C Ot 617.9 ENDOMETRIOSIS NOS 06/24/2019 SCHREIBER DO, RAJAT C Ot V72.6 3 PRE-PROCEDURAL LABORATORY EXAMINATION 06/24/2019 SCHREIBER DO, RAJAT C Ot V74.8 SCREEN-BACTERIAL DIS NEC 06/24/2019 ANNAMARIE JUAREZ, ENRRIQUE Casillas Ot R06.02 SHORTNESS OF BREATH 06/24/2019 MABEL GARCÍA MD Ot Z12. 31 ENCNTR SCREEN MAMMOGRAM FOR MALIGNANT NE 06/24/2019 MABEL GARCÍA MD, Ot J90 PLEURAL EFFUSION, NOT ELSEWHERE CLASSIFI 06/24/2019 MABEL GARCÍA MD Ot R91. 8 OTHER NONSPECIFIC ABNORMAL FINDING OF IESHA 06/24/2019 MABEL GARCÍA MD Ot R07. 89 OTHER CHEST PAIN 06/24/2019 ENRRIQUE DE LUNA MD Ot R06.02 SHORTNESS OF BREATH 06/24/2019 ABDOUL DO RAJAT C Ot Z12.3 1 ENCNTR SCREEN MAMMOGRAM FOR MALIGNANT NE 06/24/2019 ENRRIQUE CAIN MD Ot M25.511 PAIN IN RIGHT SHOULDER 06/24/2019 ENRRIQUE CAIN MD Ot M89.9 DISORDER OF BONE, UNSPECIFIED 06/24/2019 RIANNA JUAREZ, HANNAH M Ot 512.89 OTHER PNEUMOTHORAX 06/24/2019 MABEL GARCÍA MD Ot 620. 2 OVARIAN CYST NEC/NOS 06/24/2019 MABEL GARCÍA MD Ot 626. 8 MENSTRUAL DISORDER NEC 06/24/2019 SCHREIBER DO, RAJAT C Ot 793.5 NOSP (ABN) FINDINGS ON RADIOLOGICAL OT 06/24/2019 SCHREIBER DO, RAJAT C Ot V72.6 3 PRE-PROCEDURAL LABORATORY EXAMINATION 06/24/2019 SCHREIBER DO, RAJAT C Ot V74.8 SCREEN-BACTERIAL DIS NEC 06/24/2019 SCHREIBER DO, RAJAT C Ot 218.0 SUBMUCOUS LEIOMYOMA 06/24/2019 SCHREIBER DO, RAJAT C Ot 617.9 ENDOMETRIOSIS NOS 06/24/2019 SCHREIBER DO, RAJAT C Ot V72.6 3 PRE-PROCEDURAL LABORATORY EXAMINATION 06/24/2019 SCHREIBER DO, RAJAT C Ot V74.8 SCREEN-BACTERIAL DIS NEC 06/24/2019 ENRRIQUE DE LUNA MD Ot R06.02 SHORTNESS OF BREATH 06/24/2019 MABEL GARCÍA MD Ot Z12. 31 ENCNTR SCREEN MAMMOGRAM FOR MALIGNANT NE 06/24/2019 MABEL GARCÍA MD, Ot J90 PLEURAL EFFUSION, NOT ELSEWHERE CLASSIFI 06/24/2019 MABEL GARCÍA MD Ot R91. 8 OTHER NONSPECIFIC ABNORMAL FINDING OF IESHA 06/24/2019 MABEL GARCÍA MD Ot R07. 89 OTHER CHEST PAIN 06/24/2019 ENRRIQUE DE LUNA MD Ot R06.02 SHORTNESS OF BREATH 06/24/2019 ABDOUL MONK RAJAT C Ot Z12.3 1 ENCNTR SCREEN MAMMOGRAM FOR MALIGNANT NE 06/24/2019 ENRRIQUE CAIN MD Ot M25.511 PAIN IN RIGHT SHOULDER 06/24/2019 ENRRIQUE CAIN MD, Ot M89.9 DISORDER OF BONE, UNSPECIFIED 08/19/2019 MABEL GARCÍA MD Ot 620. 2 OVARIAN CYST NEC/NOS 08/19/2019 MABEL GARCÍA MD Ot 626. 8 MENSTRUAL DISORDER NEC 08/19/2019 SCHREIBER DO, RAJAT C Ot 793.5 NOSP (ABN) FINDINGS ON RADIOLOGICAL OT 08/19/2019 SCHREIBER DO, RAJAT C Ot V72.6 3 PRE-PROCEDURAL LABORATORY EXAMINATION 08/19/2019 SCHREIBER DO, RAJAT C Ot V74.8 SCREEN-BACTERIAL DIS NEC 08/19/2019 SCHREIBER DO, RAJAT C Ot 218.0 SUBMUCOUS LEIOMYOMA 08/19/2019 SCHREIBER DO, RAJAT C Ot 617.9 ENDOMETRIOSIS NOS 08/19/2019 SCHREIBER DO, RAJAT C Ot V72.6 3 PRE-PROCEDURAL LABORATORY EXAMINATION 08/19/2019 SCHREIBER DO, RAJAT C Ot V74.8 SCREEN-BACTERIAL DIS NEC 08/19/2019 ENRRIQUE DE LUNA MD Ot R06.02 SHORTNESS OF BREATH 08/19/2019 MABEL GARCÍA MD, Ot Z12. 31 ENCNTR SCREEN MAMMOGRAM FOR MALIGNANT NE 08/19/2019 MABEL GARCÍA MD, Ot J90 PLEURAL EFFUSION, NOT ELSEWHERE CLASSIFI 08/19/2019 MABEL GARCÍA MD, Ot R91. 8 OTHER NONSPECIFIC ABNORMAL FINDING OF IESHA 08/19/2019 MABEL GARCÍA MD Ot R07. 89 OTHER CHEST PAIN 08/19/2019 ENRRIQUE DE LUNA MD, Ot R06.02 SHORTNESS OF BREATH 08/19/2019 SCHREIBER DO, RAJAT C Ot Z12.3 1 ENCNTR SCREEN MAMMOGRAM FOR MALIGNANT NE 08/19/2019 ENRRIQUE CAIN MD Ot M25.511 PAIN IN RIGHT SHOULDER 08/19/2019 ENRRIQUE CAIN MD, Ot M89.9 DISORDER OF BONE, UNSPECIFIED 08/21/2019 MABEL GARCÍA MD Ot R05 COUGH 08/21/2019 MABEL GARCÍA MD, Ot R06. 02 SHORTNESS OF BREATH 08/21/2019 MABEL GARCÍA MD Ot R05 COUGH 08/21/2019 RICKY MD, MABEL J Ot R06. 02 SHORTNESS OF BREATH Procedures There is no data. Results Test Result Range Complete blood count (CBC) with automate d white blood cell (WBC) differential - 08/19/19 10:47 Blood leukocytes automated count (number/volume) 3.8 10*3/uL 4.3-11.0 Blood erythrocytes automated count (number/volume) 4.37 10*6/uL 4.35-5.85 Venous blood hemoglobin measurement (mass/volume) 12.9 g/dL 11.5-16.0 Blood hematocrit (volume fraction) 38 % 35-52 Automated erythrocyte mean corpuscular volume 87 [ foz_us] 80-99 Automated erythrocyte mean corpuscular h emoglobin (mass per erythrocyte) 30 pg 25-34 Automated erythrocyte mean corpuscular h emoglobin concentration measurement (mass/volume) 34 g/dL 32-36 Automated erythrocyte distribution width ratio 12. 1 % 10.0- 14.5 Automated blood platelet count (count/volume) 171 10*3/uL 130-400 Automated blood platelet mean volume measurement 9.3 [foz_us] 7.4-10.4 Automated blood neutrophils/100 leukocytes 45 % 42-75 Automated blood lymphocytes/100 leukocytes 43 % 12-44 Blood monocytes/100 leukocytes 11 % 0-12 Automated blood eosinophils/100 leukocytes 2 % 0-10 Automated blood basophils/100 leukocytes 0 % 0-10 Blood neutrophils automated count (number/volume) 1.7 10*3 1.8-7.8 Blood lymphocytes automated count (number/volume) 1.6 10*3 1.0-4.0 Blood monocytes automated count (number/volume) 0. 4 10*3 0.0-1.0 Automated eosinophil count 0.1 10*3/uL 0 .0-0.3 Automated blood basophil count (count/volume) 0.0 10*3/uL 0.0-0.1 Encounters ACCT No. Visit Date/Time Discharge Status Pt. Type Provider Facility Loc./Unit Complaint [id number] 08/19/2019 10:34:00 020 23:59:59 CLS Outpatient RICKY JUAREZ, MABEL Hernandez [facility] RAD SOB,COUGH [id number] 12/09/2018 08:34:00 019 23:59:59 CLS Outpatient ENRRIQUE CAIN MD [facility] RAD SUPERIOR GLENOID LABRU M LESION OF RT SHOULDER [id number] 07/09/2018 09:31:00 019 23:59:59 CLS Outpatient RAJAT SCHREIBER DO [facility] RAD SCREENING [id number] 04/18/2018 09:29:00 018 23:59:59 CLS Preadmit RAJAT SCHREIBER DO V [facility] RAD SCREENING [id number] 04/25/2017 15:36:00 017 23:59:59 CLS Outpatient ENRRIQUE DE LUNA MD [facility] RT SOB [id number] 04/07/2017 08:35:00 017 09:50:00 DIS Emergency ROGE LOUIE MD [facility] ER CP [id number] 04/05/2017 09:44:00 017 23:59:59 CLS Outpatient MABEL GARCÍA MD [facility] RAD LT CHEST PAIN [id number] 03/14/2017 10:22:00 017 23:59:59 CLS Outpatient MABEL GARCÍA MD [facility] RAD COUGH [id number] 11/16/2016 09:35:00 017 23:59:59 CLS Outpatient MABEL GARCÍA MD [facility] RAD SCREENING [id number] 06/02/2015 08:34:00 015 23:59:59 CLS Outpatient ENRRIQUE DE LUNA MD [facility] RT SHORTNESS OF BREATH [id number] 06/09/2014 06:07:00 014 11:30:00 DIS Outpatient RAJAT SCHREIBER DO [facility] SDC UTERINE FIBROIDS;ENDOMETRIOSIS;SUBMUCOSA FIBROIDS [id number] 05/25/2014 09:22:00 014 23:59:59 CLS Outpatient RAJAT SCHREIBER DO [facility] PREOP UTERINE FIBROIDS;ENDOMETRIOSIS;SUBMUCOSA FIBROIDS [id number] 05/12/2014 08:20:00 16:20:00 DIS Outpatient RAJAT SCHREIBER DO [facility] SDC THICKENED ENDOMETIUM; H YPERVASCULAR LESION [id number] 05/11/2014 08:32:00 23:59:59 CLS Outpatient RAJAT SCHREIBER DO [facility] PREOP THICKENED ENDOMETRIUM; HYPERVASCULAR LESION [id number] 04/02/2014 09:45:00 23:59:59 CLS Outpatient MABEL GARCÍA MD [facility] RAD DUB [id number] 01/08/2014 09:16:00 23:59:59 CLS Outpatient HANNAH BLANCA MD [facility] RAD RT PNUEMOTHORAX [id number] 12/29/2013 22:10:00 14:46:00 DIS Inpatient RIANNA JUAREZ, HANNAH Umaña [facility] SURGICAL SPONTANEOUS PNEUMOTHORA X [id number] 07/09/2013 11:46:00 23:59:59 CLS Outpatient MABEL GARCÍA MD [facility] RT COUGH [id number] 06/27/2013 13:53:00 23:59:59 CLS Outpatient MABEL GARCÍA MD [facility] RAD COUGH [id number] 05/11/2011 09:05:00 Document Registration
--- OUTSIDE RECORDS SUMMARY | 2020-01-07 08:55 | XMS REPORT | Encounter Summary ---
Author Author [facility] Organization [facility] Address Unknown Phone Unavailable Care Team Providers Care Preschool Paraprofessional Name Role Phone Guido Rosen MD PCP Encounter Details Care Team Description Date Type Department Venessa Gonzalez Jr., MD [address] [facility] [address] [place] [address] 07/10/2019 [facility] [address] [facility] [address] [place] [address] Social History Date Tobacco Use Types Packs/Day [...] Travel Start No recent travel history available. 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 deficiency (HCC) documented in this encounter Results * PFT COMPLETE PULM FUNCTION (07/10/2019 9:11 AM TOOL AND DIE MAKER/DESIGNER) FVC-Pre 3.74 L [facility] FVC-%Pred-pre 100 % [facility] FEV1-Pre 2.75 L [facility] FEV1-%Pred-Pre 91 % [facility] FEV1/FVC-Pre 74 % [facility] [id number] 72 % [facility] [id number] 2.15 L/sec [facility] BRC3934-%Pred-P 70 % [facility] re RVPleth-Pre 1.74 L [facility] RVPleth-%Pred-P 103 % [facility] re TLCPleth-Pre 5.35 L [facility] TLCPleth-%Pred- 104 % [facility] Pre DLCOunc-Pre 30.21 ml/min/mmHg [facility] DLCOunc-%Pred-P 127 % [facility] re DLCOunc-#SD 1.729 ml/min/mmHg [facility] DLVA-Pred 4.69 ml/min/mmHg/L [facility] DLVA-Pre 5.66 ml/min/mmHg/L [facility] DLVA-%Pred-Pre 120 % [facility] DLVA-SD 0.80 ml/min/mmHg/L [facility] DLVA-LLN 3.09 ml/min/mmHg/L [facility] DLVA-ULN 6.29 ml/min/mmHg/L [facility] DLVA-#SD 1.213 ml/min/mmHg/L [facility] [id number]-Ban 72 % [facility] Specimen Narrative Performed At This result has an attachment that is n ot available. 

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
--- OUTSIDE RECORDS SUMMARY | 2020-01-07 08:55 | XMS REPORT | Encounter Summary ---
Author Author [facility] Organization [facility] Address Unknown Phone Unavailable Care Team Providers Care Emergency Preparedness Manager Name Role Phone Guido Rosen MD PCP Reason for Visit * Reason Comments Records Request Encounter Details Care Team Description Date Type Department Venessa Gonzalez Jr., MD [address] [address] Records Request 07/10/2019 Telephone [facility] [address] [place] [address] Social History Date Tobacco Use [...] history available. documented as of this encounter Miscellaneous Notes * Telephone Encounter - Yanci Coles RN - 07/28/2019 10:27 AM ROLL CHANGER Received copy of labs done at [facility] in 10/2017 via fax. Copy sen t to Dr. Gonzalez via email and copy sent to be scanned into chart. CHANGER * Telephone Encounter - Yanci Coles RN - 07/10/2019 1:22 PM ROLL CHANGER Received pulmonary records from [facility] as requested. Copy sent to be scanned int o chart and copy sent via email to Dr. Gonzalez. CHANGER documented in this encounter Plan of Treatment Not on filedocumented as of this encounter Visit Diagnoses Not on filedocumented in this encounter
--- NOTE | 2020-01-07 09:15 | ED Chest Pain ---
General Chief Complaint: Respiratory Problems Stated Complaint: SOA,CHEST PAIN Nursing Triage Note: ARRIVED VIA AMB TO [facility]. COMPLAINS OF SOA, CHEST PAIN, RIGHT ARM PAIN. ALSO COMPLAINS OF COUGH AND LOW GRADE FEVER IN THE AM'S. Nursing Sepsis Screen: Possible Severe Sepsis Risk Source: patient Exam Limitations: no limitations History of Present Illness Date Seen by Provider: Jan 07, 2020 Time Seen by Provider: 08:55 Initial Comments Here with complaint of shortness of air, right arm pain from her wrist to her upper arm and upper chest pain that is worse when she breathes out. Denies nausea, vomiting or diarrhea. Has had intermittent low-grade fever that she related to hot flashes. No fever today. Patient has IgG deficiency and has been very protective and doing self isolation. Her son stated visit 2 days ago. Symptoms predated that. Chest pain little worse today and she called her doctor and he recommended further evaluation for blood clots. Patient does have both the IgG deficiency as well as alpha 1 antitrypsin deficiency. Has had 2 previous issues with lung collapse. Does have history of hysterectomy. Timing/Duration: intermittent, other (Arm symptoms have been intermittent over the last 2 weeks but she has started riding bikes. Does have labral issues to the right shoulder may be complicating this as well.) Severity/Quality: moderate, pressure Location: central Radiation: arms, shoulders Activities at Onset: activity Prior CP/Workup: no prior cardiac workup Modifying Factors: improves with rest ASA po BPO SPECIALIST: No NTG SL BPO SPECIALIST: No Associated Symptoms: No abdominal pain, No back pain, No diaphoresis, No dizziness, No edema, No fatigue, No nausea/vomiting; shortness of breath; No weakness Allergies and Home Medications Allergies Coded Allergies: No Known Drug Allergies (Verified , 07/18/07) Home Medications Calcium Carbonate/Vitamin D3 1 Each Tablet, 1 EACH PO DAILY, (Reported) Ferrous Sulfate 325 Mg Tablet, 325 MG PO BID, (Reported) Multivitamin 1 Each Tablet, 1 EACH PO DAILY, (Reported) Prednisone 10 Mg Tab.ds.pk, 10 MG PO UD 3 daily for 3 days, then 2 daily for 3 days, then one daily for 3 days Prescribed by: ROGE PAPPAS on 04/07/17 0944 [Hydrocodone Bit/Acetaminophen] 1 TAB TAB, 1-2 TAB PO Q4H PRN for Pain Prescribed by: RAJAT SCHREIBER on 06/10/14906 [Ibuprofen] 600 MG TAB, 600 MG PO Q6H PRN for PAIN Prescribed by: RAJAT SCHREIBER on 06/10/14906 Patient Home Medication List Home Medication List Reviewed: Yes Review of Systems Review of Systems Constitutional: see HPI; No chills; fever (Low-grade but none today) EENTM: Nose Congestion; No Nose Pain, No Throat Pain Respiratory: Cough (Daily morning cough that may be a little worse today but otherwise unchanged), Shortness of Air (Mild) Cardiovascular: Chest Pain; Denies Edema, Denies Irregular Heart Rate Gastrointestinal: Denies Abdominal Pain, Denies Diarrhea, Denies Vomiting Genitourinary: No Symptoms Reported Musculoskeletal: joint pain, muscle pain Skin: no symptoms reported Psychiatric/Neurological: No Symptoms Reported All Other Systems Reviewed Negative Unless Noted: Yes Past Ttppciu-Dpqqiv-Krdfwl Hx Past Med/Social Hx: Reviewed Nursing Past Med/Soc Hx Patient Social History Alcohol Use: Rarely Uses Recreational Drug Use: No Smoking Status: Never a Smoker 2nd Hand Smoke Exposure: No Recent Foreign Travel: No Contact w/Someone Who Travel: No Recent Infectious Disease Expo: No Recent Hopitalizations: No Seasonal Allergies Seasonal Allergies: No Past Medical History Surgeries: Yes (D&C, DIAGNOSTIC LAPAROSCOPY, PLEURADESIS) Respiratory: Yes (November,-SPONTANEOUS PNEUMOTHORAX) Asthma, Pneumonia Cardiac: No Neurological: No Reproductive Disorders: Yes Sexually Transmitted Disease: No Genitourinary: No Gastrointestinal: No Musculoskeletal: Yes (TEAR SHOULDER AND ARTHRITIS IN HAND) Endocrine: No Cancer: No Psychosocial: No Integumentary: No Blood Disorders: Yes Family Medical History Reviewed Nursing Family Hx No Pertinent Family Hx Physical Exam Vital Signs Vital Signs - First Documented 01/07/20 08:35 Temp 36.8 Pulse 101 Resp 16 B/P (MAP) 117/77 (90) Pulse Ox 98 O2 Delivery Room Air Capillary Refill : Less Than 3 Seconds Height, Weight, BMI Height: 5'5.00" Weight: 163lbs. 0.0oz. [id number]; 27.00 BMI Method:Stated General Appearance: No Apparent Distress, WD/WN HEENT: PERRL/EOMI, TMs Normal, Pharynx Normal Neck: Non Tender, Supple Respiratory: Lungs Clear, Normal Breath Sounds Cardiovascular: No Murmur, Tachycardia Gastrointestinal: Non Tender, Soft Extremity: Normal Capillary Refill, Normal Inspection, Normal Range of Motion, Non Tender, No Calf Tenderness, No Pedal Edema Neurologic/Psychiatric: Alert, Oriented x3 Skin: Normal Color, Warm/Dry Progress/Results/Core Measures Results/Orders Lab Results Laboratory Tests Test 01/07/20 08:50 01/07/20 11:26 01/07/20 13:30 Range/Units White Blood Count 5.2 4.3-11.0 10^3/uL Red Blood Count 4.45 4.35-5.85 10^6/uL Hemoglobin 13.3 11.5-16.0 G/DL Hematocrit 39 35-52 % Mean Corpuscular Volume 87 80-99 FL Mean Corpuscular Hemoglobin 30 25-34 PG Mean Corpuscular Hemoglobin Concent 34 32-36 G/DL Red Cell Distribution Width 11.6 10.0-14.5 % Platelet Count 227 130-400 10^3/uL Mean Platelet Volume 9.4 7.4-10.4 FL Neutrophils (%) (Auto) 44 42-75 % Lymphocytes (%) (Auto) 46 H 12-44 % Monocytes (%) (Auto) 8 0-12 % Eosinophils (%) (Auto) 2 0-10 % Basophils (%) (Auto) 0 0-10 % Neutrophils # (Auto) 2.3 1.8-7.8 X 10^3 Lymphocytes # (Auto) 2.4 1.0-4.0 X 10^3 Monocytes # (Auto) 0.4 0.0-1.0 X 10^3 Eosinophils # (Auto) 0.1 0.0-0.3 10^3/uL Basophils # (Auto) 0.0 0.0-0.1 10^3/uL Erythrocyte Sedimentation Rate 15 0-20 MM/HR Prothrombin Time 12.7 12.2-14.7 SEC INR Comment 0.9 0.8-1.4 Activated Partial Thromboplast Time 29 24-35 SEC D-Dimer 0.38 0.00-0.49 UG/ML Sodium Level 139 135-145 MMOL/L Potassium Level 3.7 3.6-5.0 MMOL/L Chloride Level 106 98-107 MMOL/L Carbon Dioxide Level 22 21-32 MMOL/L Anion Gap 11 5-14 MMOL/L Blood Urea Nitrogen 12 7-18 MG/DL Creatinine 0.87 0.60-1.30 MG/DL Estimat Glomerular Filtration Rate > 60 BUN/Creatinine Ratio 14 Glucose Level 105 70-105 MG/DL Calcium Level 9.8 8.5-10.1 MG/DL Corrected Calcium 8.5-10.1 MG/DL Magnesium Level 1.9 1.6-2.4 MG/DL Total Bilirubin 0.6 0.1-1.0 MG/DL Aspartate Amino Transf (AST/SGOT) 20 5-34 U/L Alanine Aminotransferase (ALT/SGPT) 14 0-55 U/L Alkaline Phosphatase 58 40-136 U/L Lactate Dehydrogenase 169 125-220 U/L Myoglobin 72.5 10.0-92.0 NG/ML Troponin I < 0.028 0.033 H < 0.028 <0.028 NG/ML C-Reactive Protein High Sensitivity 0.02 0.00-0.50 MG/DL Total Protein 7.7 6.4-8.2 GM/DL Albumin 4.7 H 3.2-4.5 GM/DL Lipase 20 8-78 U/L My Orders Orders - MALIK MATHEWS MD Chest 1 View, Ap/Pa Only (01/07/20 08:31) Ekg Tracing (01/07/20 08:31) Cbc With Automated Diff (01/07/20 08:31) Magnesium (01/07/20 08:31) Comprehensive Metabolic Panel (01/07/20 08:31) Myoglobin Serum (01/07/20 08:31) Protime With Inr (01/07/20 08:31) Partial Thromboplastin Time (01/07/20 08:31) O2 (01/07/20 08:31) Monitor-Rhythm Ecg Trace Only (01/07/20 08:31) Lipid Panel (01/08/20 06:00) Ed Iv/Invasive Line Start (01/07/20 08:31) Lipase (01/07/20 08:31) Fibrin Degradation Products (01/07/20 08:31) Aspirin Chewable Tablet (Baby Aspirin Ch (01/07/20 08:45) Erythrocyte Sedimentation Rate (01/07/20 08:56) Hs C Reactive Protein (01/07/20 08:50) LDH (01/07/20 08:50) Troponin I (7/8/20 08:50) Lactated Ringers (Lr 1000 Ml Iv Solution (01/07/20 09:32) Ct Angio Chest W (01/07/20 09:58) Iohexol Injection (Omnipaque 350 Mg/Ml 1 (01/07/20 11:15) Received Contrast (Hold Metformin- Contr (01/07/20 11:15) Ns (Ivpb) (Sodium Chloride 0.9% Ivpb Bag (01/07/20 11:15) Troponin I (01/07/20 11:11) Ns Iv 1000 Ml (Sodium Chloride 0.9%) (01/07/20 12:04) Troponin I (01/07/20 13:30) Medications Given in ED Current Medications Medications Dose Ordered Sig/Davion Route Start Time Stop Time Status Last Admin Dose Admin Aspirin 324 mg ONCE ONCE PO 01/07/20 08:45 01/07/20 08:46 DC 01/07/20 09:08 324 MG Iohexol 66 ml ONCE ONCE IV 01/07/20 11:15 01/07/20 11:16 DC 01/07/20 11:05 66 ML Sodium Chloride 100 ml ONCE ONCE IV 01/07/20 11:15 01/07/20 11:16 DC 01/07/20 11:05 80 ML Vital Signs/I&O 01/07/20 08:35 Temp 36.8 Pulse 101 Resp 16 B/P (MAP) 117/77 (90) Pulse Ox 98 O2 Delivery Room Air Blood Pressure Mean: 90 Progress Progress Note : Progress Note Seen and evaluated. IV, labs, EKG and chest x-ray ordered. ASA 324 mg by mouth ordered. I did review COVID screening questions with the patient. She has self isolated quite a period and symptoms predate exposure to son's 2 days ago. Low risk at this time we will check related labs. Given her history, much more concerning presentation for pulmonary embolism or blood clots otherwise. Chest pain protocol plus d-dimer has been ordered. We will give LR 1 L bolus. Monitor patient. 1000: CT angiogram of the chest ordered. Labs are reassuring and no concerning findings for infection either bacterial or viral and no indication of acute VA or blood clots. D-dimer is negative the patient does have tachycardia with some shortness of breath and chest pain that is not normal for her. We will go ahead and get CT angiogram of the chest to further rule out pulmonary embolism. No concerns for COVID-19 currently. Monitor patient. 1020: CT ang iogram negative. We will repeat troponin and if negative then we can safely discharged home. Case discussed with her primary care doctor, Dr. García, who agrees. She will need to see him in follow-up. I will send a copy of the chart to him. 1220: I discussed the case with Dr. Freed related to slight bump in the troponin. It is now 0.33 where it was undetectable previously. He still considers is negative and would like her to follow-up in the clinic and he can see her service tomorrow at 12:30 PM so that he can get her and and avoid contact with other patients for her due to her IgG deficiency. I did discuss this with the patient and she is nervous because she is still having some chest pain and would like the troponin repeated if possible. We will recheck it in 2 hours. Her heart rate has improved into the 80s now. There is concerns about dehydration so we will give her another liter of fluid of normal saline 1 L bolus. Vital signs are otherwise normal. Monitor patient. 1413: Repeat troponin negative now. Patient is without pain. She does have appointment with Dr. Freed tomorrow and will keep that. Return precautions discussed. Discharged home with return precautions. Patient verbalize understanding instructions and agreement with plan. Initial ECG Impression Date: Jan 07, 2020 Initial ECG Impression Time: 08:35 Initial ECG Rate: 106 Initial ECG Rhythm: S.Tach Comment Sinus tachycardia with left atrial abnormality. Right axis deviation. No evidence of ST elevation VA. No previous available for comparison. Interpreted by me. Diagnostic Imaging Diagonstic Imaging: Xray Plain Films/CT/US/NM/MRI: chest Comments NAME: RAJAT GARZA [facility] REC#: [id number] PT STATUS: REG ER : 1975 PHYSICIAN: MALIK MATHEWS MD ADMIT DATE: 01/07/20/ER Draft Date of Exam:01/07/20 CHEST 1 VIEW, AP/PA ONLY INDICATION: Shortness fair, chest pain, fever.. TECHNIQUE: Single view chest 8:50 AM. CORRELATION STUDY: 08/19/2019 FINDINGS: The heart size, mediastinal configuration and pulmonary vascularity are within normal limits. The lungs are clear with no consolidating infiltrate. There is no significant effusion or pneumothorax. Mild rightward curvature thoracic spine. IMPRESSION: 1. Generally stable, negative appearing portable chest. Dictated on workstation # [id number] Dict: 01/07/20 0853 Trans: 01/07/20 0854 DO [id number] Interpreted by: ILDA FRYE DO Electronically signed by: [facility]: CT Plain Films/CT/US/NM/MRI: chest Comments [facility] [place] NAME: RAJAT GARZA [facility] REC#: [id number] PT STATUS: REG ER : 1975 PHYSICIAN: MALIK MATHEWS MD ADMIT DATE: 01/07/20/ER Draft Date of Exam:01/07/20 CT ANGIO CHEST W PROCEDURE: CT angiography of the chest with contrast. TECHNIQUE: Multiple contiguous axial images were obtained through the chest after uneventful bolus administration of intravenous contrast. 3D reconstructed CTA MIP acquisitions were also performed. Auto Exposure Controls were utilized during the CT exam to meet ALARA standards for radiation dose reduction. INDICATION: Shortness of air. Chest pain. COMPARISON: 12/30/2013 FINDINGS: There is no evidence of acute pulmonary embolus to the 1st subsegmental division of the pulmonary arteries. Thoracic aorta is normal in course and caliber. Heart size is within normal limits. There is no large pericardial effusion. No pathologically enlarged or morphologically abnormal adenopathy is seen within the mediastinum, jennifer, nor axilla. Evaluation of lung dodson demonstrates no focal consolidation, large effusion, nor pneumothorax. No suspicious pulmonary nodules or masses are identified. Osseous structures show no acute abnormalities. No lytic or blastic bony lesions are seen. Included portions of the upper abdomen are unremarkable. IMPRESSION: 1. No pulmonary embolus in the 1st subsegmental division of the pulmonary arteries. 2. No other acute cardiopulmonary process. Dictated on workstation # [id number] Dict: 01/07/20 1109 Trans: 01/07/20 1115 SA [id number] Interpreted by: REMINGTON REBOLLEDO MD Electronically signed by: Departure Impression Primary Impression: Chest pain Qualified Codes: R07.9 - Chest pain, unspecified Disposition: 01 HOME, SELF-CARE Condition: Stable Departure-Patient Inst. Decision time for Depature: 14:14 Referrals: MABEL GARCÍA MD (PCP/Family) Primary Care Physician FAM FREED MD Patient Instructions: Chest Pain (DC) Add. Discharge Instructions: All discharge instructions reviewed with patient and/or family. Voiced understanding. Continue home medications as previously prescribed. Follow-up with Dr. Freed at his office tomorrow at 12:30 PM for recheck and further evaluation. They will try to move you into the clinic quickly to avoid exposure and that is why they are bringing you in at that time. You should initiate Pepcid or the generic famotidine 20 mg twice daily for the next 7 days and then daily thereafter as needed for stomach upset. Drink plenty of fluids and eat a light diet. Return for worse pain, breathing problems, sweating, vomiting, weakness, fever or other concerns as needed. Copy Copies To 1: MABEL GARCÍA MD Copies To 2: FAM FREED MD, TIMOTHY D MD Jan 07, 2020 09:15
[2020-01-07 09:17] LABS: BASOPHILS % (AUTO) 0 % (0-10); EOSINOPHILS # (AUTO) 0.1 10^3/uL (0.0-0.3); EOSINOPHILS % (AUTO) 2 % (0-10); HEMATOCRIT 39 % (35-52); HEMOGLOBIN 13.3 G/DL (11.5-16.0); LYMPHOCYTES # (AUTO) 2.4 X 10^3 (1.0-4.0); LYMPHOCYTES % (AUTO) 46 % (12-44); MEAN CORPUSCULAR HEMOGLOBIN 30 PG (25-34); MEAN CORPUSCULAR HGB CONC 34 G/DL (32-36); MEAN CORPUSCULAR VOLUME 87 FL (80-99); MEAN PLATELET VOLUME 9.4 FL (7.4-10.4); MONOCYTES # (AUTO) 0.4 X 10^3 (0.0-1.0); MONOCYTES % (AUTO) 8 % (0-12); NEUTROPHILS # (AUTO) 2.3 X 10^3 (1.8-7.8); NEUTROPHILS % (AUTO) 44 % (42-75); PLATELET COUNT 227 10^3/uL (130-400); RED CELL DISTRIBUTION WIDTH 11.6 % (10.0-14.5); WHITE BLOOD COUNT 5.2 10^3/uL (4.3-11.0)
[2020-01-07 09:29] LABS: INR 0.9 (0.8-1.4); PROTHROMBIN TIME PATIENT 12.7 SEC (12.2-14.7)
[2020-01-07] MEDS ORDERED: LACTATED RINGERS 1,000 ML IV STA (09:32)
[2020-01-07 09:36] LABS: ALANINE AMINOTRANSFERASE 14 U/L (0-55); ALBUMIN 4.7 GM/DL (3.2-4.5); ALKALINE PHOSPHATASE 58 U/L (40-136); BILIRUBIN,TOTAL 0.6 MG/DL (0.1-1.0); BUN/CREATININE RATIO 14; CALCIUM 9.8 MG/DL (8.5-10.1); CARBON DIOXIDE 22 MMOL/L (21-32); CHLORIDE 106 MMOL/L (98-107); CREATININE SERUM 0.87 MG/DL (0.60-1.30); GFR ESTIMATED > 60; GLUCOSE 105 MG/DL (70-105); LIPASE 20 U/L (8-78); MAGNESIUM 1.9 MG/DL (1.6-2.4); POTASSIUM 3.7 MMOL/L (3.6-5.0); SODIUM 139 MMOL/L (135-145); TOTAL PROTEIN 7.7 GM/DL (6.4-8.2)
--- NOTE | 2020-01-07 09:58 | NUR ---
DR MATHEWS NOTIFIED THAT PT STATES SHE IS HAVING MORE CHEST PAIN WHEN SHE BREATHES IN. PT NOTIFIED THAT DR WAS GOING TO BE DOING A CT ANGIO OF HER CHEST. PT VERBALIZES UNDERSTANDING AND IS TALKING TO FAMILY ON THE PHONE.
[2020-01-07] MEDS ORDERED: IOHEXOL 350 MG/ML 100 ML (OMNIPAQUE 350) VIAL IV ONE (11:15)
[2020-01-07] MEDS ORDERED: NS 100 ML (IVPB) BAG IV ONE (11:15)
[2020-01-07] MEDS ORDERED: HOLD METFORMIN - RECEIVED CONTRAST 20 ML VIAL IV SCH (11:15)
--- NOTE | 2020-01-07 11:15 | Diagnostic Imaging Report ---
PROCEDURE: CT angiography of the chest with contrast. TECHNIQUE: Multiple contiguous axial images were obtained through the chest after uneventful bolus administration of intravenous contrast. 3D reconstructed CTA MIP acquisitions were also performed. Auto Exposure Controls were utilized during the CT exam to meet ALARA standards for radiation dose reduction. INDICATION: Shortness of air. Chest pain. COMPARISON: 12/30/2013 FINDINGS: There is no evidence of acute pulmonary embolus to the 1st subsegmental division of the pulmonary arteries. Thoracic aorta is normal in course and caliber. Heart size is within normal limits. There is no large pericardial effusion. No pathologically enlarged or morphologically abnormal adenopathy is seen within the mediastinum, jennifer, nor axilla. Evaluation of lung dodson demonstrates no focal consolidation, large effusion, nor pneumothorax. No suspicious pulmonary nodules or masses are identified. Osseous structures show no acute abnormalities. No lytic or blastic bony lesions are seen. Included portions of the upper abdomen are unremarkable. IMPRESSION: 1. No pulmonary embolus in the 1st subsegmental division of the pulmonary arteries. 2. No other acute cardiopulmonary process. Dictated by: Dictated on workstation # [id number]
--- NOTE | 2020-01-07 11:20 | NUR ---
IN ROOM TALKING TO THE PT.
[2020-01-07] MEDS ORDERED: NS IV 1000 ML 1,000 ML IV SCH (12:04)
--- NOTE | 2020-01-07 12:04 | NUR ---
IN TALKING TO THE PT AT THIS TIME.
--- NOTE | 2020-01-07 12:33 | NUR ---
PT COMPLAINS OF PAIN IN LEFT ARM IV SITE. PT SITE IS SWOLLEN. PT THOUGHT PAIN WAS DUE TO IT BEING IN THE AC. [facility] CHECK WNL. NOTIFIED.
[2020-01-07 14:30] VITALS: BP 135/80
== END 2020-01-07 14:30 | disposition home or self-care (01) ==
LOC: EDUNIT# 08:29 → ER 08:30
DX: R07.89 Other chest pain (principal); J45.909 Unspecified asthma, uncomplicated; Z79.52 Long term (current) use of systemic steroids
CPT/HCPCS: 36415; 71045; 71275; 80053; 83615; 83690; 83735; 83874; 84484; 85025; 85379; 85610; 85652; 85730; 86141; 93005; 93041

== ENCOUNTER → 2020-01-14 | Outpatient (CLI) | payer BC ==
[~2020-01-14] VITALS: Ht 165 cm; Wt 74.0 kg
[~2020-01-14] MED LIST changes: +CATHETER FLUSH 10 ML SYR IV PRN
[2020-01-14 09:03] VITALS: BP 112/75
--- NOTE | 2020-01-14 12:26 | Cardiology Stress Test Report ---
Stress Test Report Date of Procedure/Referring: Date of Procedure: Jan 14, 2020 PCP Fam Freed MD Admitting Physician Guido Rosen MD Indications: Chest pain Baseline Heart Rate: 67 Baseline Blood Pressure: Blood Pressure Systolic: 112 Blood Pressure Diastolic: 75 Vital Signs Date Time Temp Pulse Resp B/P (MAP) Pulse Ox O2 Delivery O2 Flow Rate FiO2 01/14/20 09:03 85 16 112/75 (87) 98 Room Air Baseline Vital Signs Vital Signs Date Time Temp Pulse Resp B/P (MAP) Pulse Ox O2 Delivery O2 Flow Rate FiO2 01/14/20 09:03 85 16 112/75 (87) 98 Room Air Baseline EKG: Baseline EKG: Normal sinus rhythm Summary: After explaining the procedure and details to the patient, she signed the consent and was brought to the stress nuclear laboratory. Patient exercised on standard Marc protocol, EKG, heart rate and blood pressure were monitored continuously, resting and stress doses of radio tracer were injected, imaging was acquired and reviewed in the short axis, horizontal long axis and vertical long axis views Patient was able to exercise for a total of 9:45 minutes on Marc protocol, METs 11.3 Maximum heart rate 164 Maximum blood pressure 247/55 Stress EKG, Minimal nondiagnostic changes Recovery EKG, Return to baseline TID: 0.97 SSS: 3 SDS: 2 EF: 66 Conclusion: 1. Good exercise tolerance for a total of 9 minutes 45 seconds on Marc protocol total of 11.3 METs achieving 92 percent of maximum expected heart rate 2. Hypertensive response to exercise with peak blood pressure 247/55 return to baseline during recovery 3. Minimal nondiagnostic EKG changes with exercise returned to baseline during recovery 4. Breast attenuation affecting the quality of the images with typical female pattern. No significant ischemia or infarction was noted 5. Normal left ventricular size, EF 66 percent FAM FREED MD Jan 14, 2020 12:26
== END ==
LOC: CARD 07:24
PROVIDERS: ATTEND Internal Medicine Cardiovascular Disease
DX: D64.9 Anemia, unspecified (principal); D80.3 Selective deficiency of immunoglobulin G [IgG] subclasses; R07.9 Chest pain, unspecified; R06.02 Shortness of breath
CPT/HCPCS: 78452; 93017; A9502

== ENCOUNTER → 2020-01-15 | Outpatient (CLI) | payer BC ==
[~2020-01-15] MED LIST changes: -CATHETER FLUSH 10 ML SYR IV PRN
== END ==
LOC: CARD 11:29
PROVIDERS: ATTEND Internal Medicine Cardiovascular Disease
DX: D64.9 Anemia, unspecified (principal); D80.3 Selective deficiency of immunoglobulin G [IgG] subclasses
CPT/HCPCS: 93306

== ENCOUNTER → 2020-07-22 | Outpatient (CLI) | payer BC ==
--- NOTE | 2020-07-22 15:26 | Diagnostic Imaging Report ---
INDICATION: Left breast pain. CORRELATION is made with prior mammograms of 02/18/2019 and 11/16/2016. 2-D and 3-D bilateral diagnostic mammography was performed with CAD. Both breasts remain heterogeneously dense, limiting the sensitivity of mammography. No masses or malignant appearing microcalcifications are seen. Axillae are unremarkable. IMPRESSION: BI-RADS Category 0 No mammographic features are suspicious for malignancy are identified. Even so, directed sonographic interrogation of the area of pain in the outer left breast is recommended and will be performed today. ACR BI-RADS Category 0: Incomplete. (Needs additional imaging evaluation). Result letter will be mailed to the patient. Note: At least 10% of breast cancer is not imaged by mammography. Dictated by: Dictated on workstation # [id number]
--- NOTE | 2020-07-22 15:52 | Diagnostic Imaging Report ---
EXAM: Limited soft tissue ultrasound left groin. EXAM DATE: 07/22/2020 COMPARISON: None. HISTORY: Left groin pain and swelling. TECHNIQUE: Multiple sonographic images of the left groin were obtained in the region of concern. FINDINGS: Within the left groin soft tissues, there are multiple normal-appearing lymph nodes with normal fatty hilum and thin cortex. No focal mass, fluid collection or suspicious lymphadenopathy. No findings to suggest a left inguinal hernia on this exam. IMPRESSION: No focal mass, lymphadenopathy, hernia or other abnormality within the left groin. Dictated by: Dictated on workstation # [id number]
--- NOTE | 2020-07-22 16:20 | Diagnostic Imaging Report ---
INDICATION: Lateral left breast pain. Sonographic interrogation at the area of pain in the lateral left breast was performed. There is a simple cyst at the 2:00 location measuring 4 mm x 6 mm x 7 mm. This may be incidental. No other sonographic abnormality is seen. No solid masses are detected. IMPRESSION: BI-RADS Category 2. Simple cyst at the 2:00 location of the left breast. The study is otherwise unremarkable. Dictated by: Dictated on workstation # [id number]
== END ==
LOC: RAD 13:29
PROVIDERS: ATTEND Obstetrics & Gynecology
DX: N60.02 Solitary cyst of left breast (principal)
CPT/HCPCS: 76642; 76881; 77066; G0279; 77062

== ENCOUNTER → 2020-08-02 | Outpatient (CLI) | payer BC ==
--- NOTE | 2020-08-02 10:56 | Diagnostic Imaging Report ---
PROCEDURE: CT abdomen and pelvis without contrast. TECHNIQUE: Multiple contiguous axial images were obtained through the abdomen and pelvis without the use of intravenous contrast. Auto Exposure Controls were utilized during the CT exam to meet ALARA standards for radiation dose reduction. INDICATION: Right lower quadrant pain and nausea. No prior studies are available for comparison. The lung bases are clear. No discrete liver mass is detected. Gallbladder is unremarkable. No biliary duct dilatation is seen. The pancreas and spleen are unremarkable. No adrenal mass is detected. Kidneys are unremarkable for hydronephrosis or calculi. Aorta is non-aneurysmal. The small and large bowel loops are normal caliber. There is no obstruction. The appendix is visualized in the right lower quadrant and appears unremarkable. No periappendiceal inflammation or evidence of acute appendicitis is detected. No free fluid or fluid collection is identified apart from trace fluid in the pelvis which may be physiologic. The bladder is decompressed. Uterus is unremarkable. There is a probable ovarian cyst in the right adnexa measuring approximately 2.5 cm in size. IMPRESSION: Essentially unremarkable noncontrast CT of the abdomen and pelvis apart from a right adnexal cyst. There is no evidence of acute appendicitis or urinary tract obstruction. Dictated by: Dictated on workstation # [id number]
== END ==
LOC: RAD 10:28
PROVIDERS: ATTEND Family Medicine
DX: N83.291 Other ovarian cyst, right side (principal)
CPT/HCPCS: 74176

== ENCOUNTER → 2021-08-05 | Outpatient (CLI) | payer BC ==
--- NOTE | 2021-08-05 09:25 | Diagnostic Imaging Report ---
Exam: MRI left foot without contrast. Date: August 05, 2021. Indication: 46-year-old female, left foot and ankle pain and swelling. Mass. Comparison: None. Technique: Multiple noncontrast MRI sequences of the left foot were obtained. Findings: The Lisfranc ligament proper is intact. The visualized portions of the peroneus longus and peroneus brevis tendons are intact. The visualized portions of the posterior flexor tendons are intact. The visualized portions of the anterior extensor tendons are intact. The visualized portions of the plantar fascia are intact. There is a marker denoting area of focal concern volarly located at the level of the sustentaculum talus. This is incompletely imaged on all sequences although areas included on the short axis images. There is no underlying soft tissue mass identified. There is no otherwise identified soft tissue mass in the included [id number]. There is no acute fracture, bone contusion, stress reaction, or other bone marrow signal abnormality. Joint spaces appear well preserved. There is no sizable joint effusion. Impression: 1. Intact Lisfranc ligament proper and imaged tendons. 2. No visible soft tissue mass. 3. Unremarkable joint assessment. 4. No acute fracture, bone contusion, stress reaction, or other bone marrow signal abnormality. Dictated by: Dictated on workstation # [id number]
--- NOTE | 2021-08-05 09:29 | Diagnostic Imaging Report ---
EXAMINATION: Magnetic resonance imaging of the left ankle without contrast. DATE: August 05, 2021. COMPARISON: None. HISTORY: 46-year-old female, left ankle pain and swelling. Mass. TECHNIQUE: Magnetic Resonance Imaging sequences were performed of the ankle without contrast. FINDINGS: TENDONS AND LIGAMENTS: The Achilles tendon is unremarkable. The posterior flexor tendons - tibialis posterior, flexor digitorum longus, flexor hallucis longus - are intact. The peroneal tendons - peroneus longus and peroneus brevis - are intact. The anterior extensor tendons - tibialis anterior, extensor hallucis longus and extensor digitorum longus tendons - are intact. The anterior and posterior syndesmotic ligaments are intact. The anterior talofibular, posterior talofibular, calcaneofibular and deltoid ligaments are intact. The plantar fascia is intact. JOINTS: The ankle mortise is intact. The subtalar and visualized joints of the mid-foot are intact. BONE: There is a normal variant os trigonum without edema in the accessory ossicle to suggest abnormal motion. The bone marrow signal is within normal limits. Specifically, negative for fracture, osteomyelitis, osteonecrosis, or marrow replacing process. The talar dome is intact. BURSAE AND SOFT TISSUES: There is nonspecific edema in the pre-Achilles fat. There is nonspecific lateral and medial subcutaneous edema as well. There is a marker denoting area of concern of mass without identified soft tissue mass at this location or otherwise noted in the included [id number]. IMPRESSION: 1. No identified soft tissue mass. 2. Intact ankle tendons and ligaments. 3. No acute fracture, bone contusion, or other notable bone marrow signal abnormality. 4. Unremarkable joint evaluation. Dictated by: Dictated on workstation # [id number]
== END ==
LOC: RAD 08:00
PROVIDERS: ATTEND Family Medicine
DX: M25.572 Pain in left ankle and joints of left foot (principal); R22.42 Localized swelling, mass and lump, left lower limb
CPT/HCPCS: 73721

== ENCOUNTER → 2022-07-14 | Outpatient (CLI) | payer BC ==
--- NOTE | 2022-07-14 13:18 | Diagnostic Imaging Report ---
INDICATION: Routine screening. COMPARISON is made with prior mammograms from 07/22/2020 and 07/09/2018. 2-D and 3-D bilateral screening mammography was performed with CAD. Scattered fibroglandular densities are identified bilaterally. The parenchymal pattern is stable. No mass or malignant-appearing microcalcifications are seen. Axillae are unremarkable. IMPRESSION: BI-RADS Category 1 No mammographic features suspicious for malignancy are identified. ACR BI-RADS Category 1: Negative. Result letter will be mailed to the patient. Note: At least 10% of breast cancer is not imaged by mammography. Dictated by: Dictated on workstation # [id number]
== END ==
LOC: RAD 10:59
PROVIDERS: ATTEND Surgery
DX: Z12.31 Encounter for screening mammogram for malignant neoplasm of breast (principal)
CPT/HCPCS: 77063; 77067

== ENCOUNTER → 2022-07-27 | Outpatient (CLI) | payer BC ==
--- NOTE | 2022-07-27 11:54 | Diagnostic Imaging Report ---
Indication: Right anterior chain lymphadenopathy. Sonographic interrogation of the right neck was performed at the area of patient's lumps. There appears to be a lymph node measuring 1.2 x 0.3 x 0.9 cm. 2nd node measures 0.9 x 0.2 x 0.9 cm. No other abnormality seen. IMPRESSION: Normal sized lymph nodes at the areas of palpable abnormality right neck. Dictated by: Dictated on workstation # [id number]
== END ==
LOC: RAD 08:46
PROVIDERS: ATTEND Family Medicine
DX: R59.0 Localized enlarged lymph nodes (principal)
CPT/HCPCS: 76536

== ENCOUNTER 2023-02-21 05:35 | Outpatient (CLI) | payer BC ==
[~2023-02-21] VITALS: Ht 165.1 cm; Wt 83.0 kg
[2023-02-22] MEDS ORDERED: AMPH20CA5 PO (11:48)
[2023-02-22] MEDS ORDERED: RT-ALBUINH INH (11:48)
[2023-02-22] MEDS ORDERED: DESV50TA PO (11:48)
== END 2023-02-22 11:49 | disposition home or self-care (01) ==
LOC: PREOP 05:35
PROVIDERS: ATTEND Surgery
DX: Z01.818 Encounter for other preprocedural examination (principal)

== ENCOUNTER 2023-03-06 08:54 | Day surgery (SDC) | payer BC ==
[~2023-03-06] VITALS: Ht 165.1 cm; Wt 83.0 kg
[~2023-03-06 08:54] MED LIST changes: +AMPH20CA5 PO; +DESV50TA PO; +RT-ALBUINH INH
[2023-03-06] MEDS ORDERED: LACTATED RINGERS 1,000 ML 1,000 ML IV STA (08:56)
[2023-03-06 09:12] VITALS: BP 115/65
[2023-03-06 10:20] VITALS: BP 86/51
--- NOTE | 2023-03-06 10:21 | Progress Note-Post Operative ---
Post-Operative Progess Note Surgeon (s)/Solution Strategist (s) Surgeon AALIYAH NATARAJAN DO Solution Strategist: NA Pre-Operative Diagnosis screening colonoscopy Post-Operative Diagnosis descending and sigmoid colon Procedure & Operative Findings Date of Procedure 03/06/23 Procedure Performed/Findings Colonscopy with hot biopsy x2 Anesthesia Type per [facility] Estimated Blood Loss Estimated blood loss (mL): none Specimens/Packing Specimens Removed descending and sigmoid colon AALIYAH NATARAJAN DO Mar 06, 2023 10:21
--- NOTE | 2023-03-06 10:22 | Discharge Inst-Simple/Standard ---
Discharge Inst-Standard Patient Instructions/Follow Up Plan of Care/Instructions/FU: 2 weeks fermin Activity as Tolerated: Yes Discharge Diet: Regular Diet AALIYAH NATARAJAN DO Mar 06, 2023 10:22
[2023-03-06 10:25] VITALS: BP 89/52
[2023-03-06 10:56] VITALS: BP 89/52
--- NOTE | 2023-03-06 12:59 | Anesthesia-General Post-Op ---
MAC Patient Condition Mental Status/LOC: Same as Preop Cardiovascular: Satisfactory Nausea/Vomiting: Absent Respiratory: Satisfactory Pain: Controlled Complications: Absent Post Op Complications Complications None Follow Up Care/Instructions Patient Instructions None needed. Anesthesiology Discharge Order Discharge Order Patient is doing well, no complaints, stable vital signs, no apparent adverse anesthesia problems. No complications reported per nursing. JONNY GARCIA CRNA Mar 06, 2023 12:59
--- NOTE | 2023-03-06 15:29 | OPERATIVE REPORT ---
DATE OF SERVICE: 03/06/2023 PREOPERATIVE DIAGNOSIS: Screening colonoscopy. POSTOPERATIVE DIAGNOSIS: Colon polyps x2. PROCEDURE: Colonoscopy with hot biopsy polypectomy x2. SURGEON: Aaliyah Villa DO ANESTHESIA: Per PROTECTION MGR. ESTIMATED BLOOD LOSS: None. COMPLICATIONS: None. INDICATIONS: The patient is a 47-year-old female, needing screening colonoscopy. She understands risks and benefits of procedure and wished to proceed. Consent was signed in chart. DESCRIPTION OF PROCEDURE: The patient was taken to endoscopy suite, placed in left lateral recumbent position. Timeout was performed. Digital rectal exam was performed. No palpable polyps, masses or ulcerations. Scope was inserted in the rectum, advanced all the way to the cecum with minimal difficulty. Prep was adequate. Scope was slowly retracted back. No polyps, masses or ulcerations within the cecum, ascending, transverse colon. In the descending colon, small polyp was present, which hot biopsy polypectomy was performed. Scope was then continuously retracted back to the sigmoid colon where another small polyp, which hot biopsy polypectomy was performed. Scope was then slowly retracted back in the rectum where it was also retroflexed noting no other pathology. Scope was returned to its normal position, slowly withdrawn until completely removed. The patient tolerated the procedure well without complications, taken to recovery room in stable condition. RECOMMENDATIONS: The patient will repeat colonoscopy in 5 years. Any issues before that, be seen at that time. She will follow up on pathology in 2 weeks. Job ID: [id number] DocumentID: [id number] Dictated Date: 03/06/2023 10:26:55 Engineering Writer Date: 03/06/2023 15:27:00 Dictated By: AALIYAH VILLA DO
== END 2023-03-06 10:59 | disposition home or self-care (01) ==
LOC: ENDO 08:54
PROVIDERS: ATTEND Surgery
DX: Z12.11 Encounter for screening for malignant neoplasm of colon (principal); K63.5 Polyp of colon; Z80.0 Family history of malignant neoplasm of digestive organs

== ENCOUNTER 2023-03-22 21:49 | Emergency (ER) | payer BC ==
[~2023-03-22] VITALS: Ht 165 cm; Wt 83.0 kg
[2023-03-22] MEDS ORDERED: LACTATED RINGERS 1,000 ML 1,000 ML IV STA (22:03)
--- NOTE | 2023-03-22 22:06 | ED GI ---
General Stated Complaint: FLU LIKE SYMPTOMS, BOTH HANDS LOST MOTOR FUNCTION Source of Information: Patient Exam Limitations: No Limitations History of Present Illness Date Seen by Provider: Mar 22, 2023 Time Seen by Provider: 21:52 Initial Comments 47-year-old female with past medical history of IgG deficiency coming in due to several episodes of nonbloody nonbilious vomiting and nonbloody diarrhea. This was occurring shortly prior to arrival. Her grandchild has been sick with si milar illness over the past week that she is taking care of. After the most recent episode of vomiting, her hands began cramping up, she was unable to open them for some time. It was very painful. Denies any true weakness, numbness, headache, vision changes, chest pain, shortness of breath, or any other concerns. She does have a mild cough. She started cefdinir on Sunday for this which she has as a ongoing prescription given her immunodeficiency. Allergies and Home Medications Allergies Coded Allergies: No Known Drug Allergies (Verified , 07/18/07) Patient Home Medication List Home Medication List Reviewed: Yes Albuterol Sulfate (Ventolin Hfa) 1 Puff Puff, 2 PUFF INH PRN, (Reported) Entered as Reported by: AJITH AUGUSTINE on 02/22/23 1148 Desvenlafaxine Succinate (Pristiq ER) 50 Mg Tab.er.24h, 50 MG PO DAILY, (Reported) Entered as Reported by: AJITH AUGUSTINE on 02/22/23 1148 Dextroamphetamine/Amphetamine (Adderall Xr 20 mg Capsule) 20 Mg Cap.er.24h, 20 MG PO BID, (Reported) Entered as Reported by: AJITH AUGUSTINE on 02/22/23 1148 Estradiol/Norethindrone Acet (Combipatch 0.05-0.14 mg Ptch) 0.05 Mg-0.14 Mg/24 Hour Patch.tdsw, (Reported) Entered as Reported by: CARLY NUNEZ on 03/22/232216 Last Action: New Order Review of Systems Review of Systems Constitutional: No fever EENTM: No Symptoms Reported Respiratory: No Symptoms Reported Cardiovascular: No Symptoms Reported Gastrointestinal: See HPI Genitourinary: No Symptoms Reported Musculoskeletal: see HPI Skin: no symptoms reported Psychiatric/Neurological: No Symptoms Reported Endocrine: No Symptoms Reported Past Bymtojt-Erqyoz-Tpswrc Hx Patient Social History Tobacco Use?: No Substance use?: No Alcohol Use?: No Immunizations Up To Date First/Initial COVID19 Vaccinat: YES Second COVID19 Vaccination Jorge: YES Seasonal Allergies Seasonal Allergies: Yes Past Medical History Surgeries: Yes (D&C, DIAGNOSTIC LAPAROSCOPY, PLEURADESIS) Section, Hysterectomy Respiratory: Yes (November,-SPONTANEOUS PNEUMOTHORAX) Asthma, Pneumonia Cardiac: No Neurological: Yes (OPTICAL INFARCT) Reproductive Disorders: Yes MEDICAL OFFICE ASST History: Hysterectomy Sexually Transmitted Disease: No Genitourinary: No Gastrointestinal: No Musculoskeletal: Yes (TEAR SHOULDER AND ARTHRITIS IN HAND) Endocrine: No Cancer: No Psychosocial: Yes Depression Integumentary: No Blood Disorders: Yes Family Medical History No Pertinent Family Hx Physical Exam Vital Signs Vital Signs - First Documented 03/22/23 21:54 Temp 35.7 Pulse 102 Resp 16 B/P (MAP) 120/76 (91) Pulse Ox 98 O2 Delivery Room Air Capillary Refill : Height/Weight/BMI Height: 5'5.00" Weight: 163lbs. 0.0oz. 73.495057fi; 30.44 BMI Method:Stated General Appearance: WD/WN, no apparent distress HEENT: PERRL/EOMI, normal ENT inspection, pharynx normal Neck: non-tender, full range of motion, supple, normal inspection Respiratory: chest non-tender, lungs clear, normal breath sounds, no respiratory distress, no accessory muscle use Cardiovascular: regular rate, rhythm, no edema, no murmur Gastrointestinal: normal bowel sounds, non tender, soft; No distended, No guar ding, No rebound Extremities: normal range of motion, non-tender, normal inspection, no pedal edema, no calf tenderness, normal capillary refill Back: normal inspection, no CVA tenderness Neurologic/Psychiatric: no motor/sensory deficits, alert, normal mood/affect Skin: normal color, warm/dry Progress/Results/Core Measures Results/Orders Lab Results Laboratory Tests Test 03/22/23 22:07 03/22/23 22:10 Range/Units White Blood Count 14.3 H 4.3-11.0 10^3/uL Red Blood Count 5.18 H 3.80-5.11 10^6/uL Hemoglobin 15.3 11.5-16.0 g/dL Hematocrit 47 35-52 % Mean Corpuscular Volume 91 80-99 fL Mean Corpuscular Hemoglobin 30 25-34 pg Mean Corpuscular Hemoglobin Concent 33 32-36 g/dL Red Cell Distribution Width 11.8 10.0-14.5 % Platelet Count 247 130-400 10^3/uL Mean Platelet Volume 9.1 9.0-12.2 fL Immature Granulocyte % (Auto) 1 % Neutrophils (%) (Auto) 85 H 42-75 % Lymphocytes (%) (Auto) 9 L 12-44 % Monocytes (%) (Auto) 4 0-12 % Eosinophils (%) (Auto) 1 0-10 % Basophils (%) (Auto) 0 0-10 % Neutrophils # (Auto) 12.2 H 1.8-7.8 10^3/uL Lymphocytes # (Auto) 1.2 1.0-4.0 10^3/uL Monocytes # (Auto) 0.6 0.0-1.0 10^3/uL Eosinophils # (Auto) 0.2 0.0-0.3 10^3/uL Basophils # (Auto) 0.0 0.0-0.1 10^3/uL Immature Granulocyte # (Auto) 0.1 0.0-0.1 10^3/uL Neutrophils % (Manual) 68 % Lymphocytes % (Manual) 16 % Monocytes % (Manual) 4 % Eosinophils % (Manual) 1 % Band Neutrophils 11 % Blood Morphology Comment NORMAL Sodium Level 141 135-145 MMOL/L Potassium Level 3.7 3.6-5.0 MMOL/L Chloride Level 107 98-107 MMOL/L Carbon Dioxide Level 22 21-32 MMOL/L Anion Gap 12 5-14 MMOL/L Blood Urea Nitrogen 18 7-18 MG/DL Creatinine 0.85 0.60-1.30 MG/DL Estimat Glomerular Filtration Rate 86 BUN/Creatinine Ratio 21 Glucose Level 126 H 70-105 MG/DL Calcium Level 9.4 8.5-10.1 MG/DL Corrected Calcium 8.5-10.1 MG/DL Magnesium Level 2.1 1.6-2.4 MG/DL Total Bilirubin 0.6 0.1-1.0 MG/DL Aspartate Amino Transf (AST/SGOT) 20 5-34 U/L Alanine Aminotransferase (ALT/SGPT) 20 0-55 U/L Alkaline Phosphatase 76 40-136 U/L Total Protein 8.5 H 6.4-8.2 GM/DL Albumin 5.1 H 3.2-4.5 GM/DL Influenza Type A (RT-PCR) Not Detected Not Detecte Influenza Type B (RT-PCR) Not Detected Not Detecte SARS-CoV-2 RNA (RT-PCR) Not Detected Not Detecte My Orders Orders - MOLLY HWANG MD Cbc And Automated Diff (03/22/23 22:03) Comprehensive Metabolic Panel (03/22/23 22:03) Magnesium (03/22/23 22:03) Influenza A And B By Pcr (03/22/23 22:03) Covid 19 Inhouse Test (03/22/23 22:03) Ondansetron Injection (Ondansetron Inj (03/22/23 22:15) Lactated Ringers 1,000 Ml (Lactated Ring (03/22/23 22:03) Manual Differential (03/22/23 22:07) Medications Given in ED Current Medications Medications Dose Ordered Sig/Davion Route Start Time Stop Time Status Last Admin Dose Admin Ondansetron HCl 4 mg ONCE ONCE IVP 03/22/23 22:15 03/22/23 22:16 DC 03/22/23 22:11 4 MG Vital Signs/I&O 03/22/23 21:54 Temp 35.7 Pulse 102 Resp 16 B/P (MAP) 120/76 (91) Pulse Ox 98 O2 Delivery Room Air Progress Progress Note : Progress Note 47-year-old female with above history coming in after multiple episodes of nonbloody nonbilious vomiting and diarrhea followed by hand cramping. ABCs were intact vitals were stable on presentation. Physical exam reassuring including a nonfocal neuro exam. An IV was placed and basic labs were obtained and were significant for unremarkable electrolytes, her potassium is low normal, normal calcium and magnesium as well. Does have a mild leukocytosis. She is on antibiotics at this time for an infection. Flu and COVID testing sent was negative. An IV was placed and she was also given a bolus of IV fluids. She is well-appearing, not having recurrence of her symptoms, and I believe stable for discharge with outpatient follow-up. She was sent home with strict return precautions Departure Impression Primary Impression: Vomiting and diarrhea Additional Impression: Cramping of hands Disposition: HOME, SELF-CARE Condition: Stable Departure-Patient Inst. Decision time for Depature: 23:10 Referrals: MABEL GARCÍA MD (PCP/Family) Primary Care Physician Patient Instructions: Nausea and Vomiting, Adult ED Add. Discharge Instructions: The hand cramping sensation you are feeling is most likely due to the dehydration and the vomiting and diarrhea. The fluids we gave you will help with this. Nausea medicines were sent to your pharmacy. Follow-up with your regular doctor if you are not seeing improvement after the next couple of days. Scripts Ondansetron (Ondansetron Odt) 4 Mg Tab.rapdis 4 MG SL Q6H PRN for NAUSEA/VOMITING for 5 Days, #20 TAB Prov: MOLLY HWANG MD 03/22/23 Work/School Note: Work Release Form Date Seen in the Emergency Department: Mar 22, 2023 Return to Work: Mar 24, 2023 Restrictions: No Restrictions MOLLY HWANG MD Mar 22, 2023 22:06
[2023-03-22 22:15] LABS: BASOPHILS % (AUTO) 0 % (0-10); EOSINOPHILS # (AUTO) 0.2 10^3/uL (0.0-0.3); EOSINOPHILS % (AUTO) 1 % (0-10); HEMATOCRIT 47 % (35-52); HEMOGLOBIN 15.3 g/dL (11.5-16.0); LYMPHOCYTES # (AUTO) 1.2 10^3/uL (1.0-4.0); LYMPHOCYTES % (AUTO) 9 % (12-44); MEAN CORPUSCULAR HEMOGLOBIN 30 pg (25-34); MEAN CORPUSCULAR HGB CONC 33 g/dL (32-36); MEAN CORPUSCULAR VOLUME 91 fL (80-99); MEAN PLATELET VOLUME 9.1 fL (9.0-12.2); MONOCYTES # (AUTO) 0.6 10^3/uL (0.0-1.0); MONOCYTES % (AUTO) 4 % (0-12); NEUTROPHILS # (AUTO) 12.2 10^3/uL (1.8-7.8); NEUTROPHILS % (AUTO) 85 % (42-75); PLATELET COUNT 247 10^3/uL (130-400); WHITE BLOOD COUNT 14.3 10^3/uL (4.3-11.0)
[2023-03-22] MEDS ORDERED: ONDANSETRON INJECTION 4 MG/2 ML (SDV) IVP ONE (22:15)
[2023-03-22] MEDS ORDERED: [UNRECOGNIZED DRUG - CODE] (22:17)
[2023-03-22 22:30] LABS: ALBUMIN 5.1 GM/DL (3.2-4.5); CHLORIDE 107 MMOL/L (98-107); POTASSIUM 3.7 MMOL/L (3.6-5.0); SODIUM 141 MMOL/L (135-145)
[2023-03-22 22:31] LABS: CALCIUM 9.4 MG/DL (8.5-10.1)
[2023-03-22 22:32] LABS: GLUCOSE 126 MG/DL (70-105); TOTAL PROTEIN 8.5 GM/DL (6.4-8.2)
[2023-03-22 22:33] LABS: CARBON DIOXIDE 22 MMOL/L (21-32)
[2023-03-22 22:34] LABS: BILIRUBIN,TOTAL 0.6 MG/DL (0.1-1.0)
[2023-03-22 22:35] LABS: ALKALINE PHOSPHATASE 76 U/L (40-136)
[2023-03-22 22:36] LABS: CREATININE SERUM 0.85 MG/DL (0.60-1.30); GFR ESTIMATED 86
[2023-03-22 22:37] LABS: BUN/CREATININE RATIO 21
[2023-03-22 22:38] LABS: MAGNESIUM 2.1 MG/DL (1.6-2.4)
[2023-03-22 22:39] LABS: ALANINE AMINOTRANSFERASE 20 U/L (0-55)
[2023-03-22 22:59] LABS: BAND NEUTROPHILS 11 %; EOSINOPHILS % (MANUAL) 1 %; LYMPHOCYTES % (MANUAL) 16 %; MONOCYTES % (MANUAL) 4 %; NEUTROPHILS % (MANUAL) 68 %; RBC MORPH NORMAL
[2023-03-22] MEDS ORDERED: ONDA4TAB11 SL (23:06)
[2023-03-22 23:15] VITALS: BP 124/75
[2023-03-22] MEDS ORDERED: POTASSIUM CHLORIDE 20 MEQ TABLET PO ONE (23:15)
== END 2023-03-22 23:19 | disposition home or self-care (01) ==
LOC: EDUNIT# 21:49 → ER 21:52
DX: R11.10 Vomiting, unspecified (principal); R19.7 Diarrhea, unspecified; R25.2 Cramp and spasm; R05.9 Cough, unspecified; Z20.822 Contact with and (suspected) exposure to COVID-19
CPT/HCPCS: 36415; 80053; 83735; 85007; 85027; 87636